=== PATIENT | male | born 1940 | race Caucasian/White ===

== ENCOUNTER 2016-07-13 19:27 | Inpatient (IN) ==
--- NOTE | 2016-07-13 20:09 | Emergency Department Note ---
Disposition Clinical Impression: Lacunar infarct, acute Disposition: Admitted As Inpatient Condition: Good Referrals: NO,PCP [Non-Partnered Physician] - Forms: ED Satisfaction Letter Time of Disposition: 21:24 Neuro HPI - General Chief Complaint: ED Neuro Symptoms/Deficit Stated Complaint: stroke like symptoms Time Seen by Provider: 07/13/16 19:37 Source: patient, EMS Limitations: no limitations Nursing Notes Reviewed: Yes Vital Signs Reviewed: Yes - History of Present Illness HPI Narrative: 76 year old male with HX of slurred speech and right sided weakness and difficulty with balance on the right side that started at 0800 this morning. Kaya states that his vision is always blurred on the right side and this has not changed but it does affect his coordination. Kaya does state that it seems as though his balance is omre off than usual in addition to the fact that his right upper extremity feels more weak to him than usual and his speech seems slurred. At the time of the incident he was working in his yard and his symptoms have improved although still present. Kaya states that he has no previous history of strokes or MIs and is not on any anticoagualtion. Kaya denies fevers, nausea, vomitting, headache, neck pain, chest pain, shortness of breaht, abdominal pain, UTI symptoms. - Related Data Home Medications: Home Medications Medication Instructions Recorded Confirmed Albuterol Sulfate [Albuterol 2 puff IH Q4H PRN 02/20/16 07/13/16 Inhaler] Budesonide/Formoterol 80/4.5 2 puff IH BID 02/20/16 07/13/16 [Symbicort 80/4.5] Losartan Potassium [Cozaar] 50 mg PO DAILY 02/20/16 07/13/16 Montelukast [Singulair] 10 mg PO HS 02/20/16 07/13/16 Omeprazole [PriLOSEC] 20 mg PO DAILY 02/20/16 07/13/16 Furosemide [Lasix] 20 mg PO DAILY 07/13/16 07/13/16 Allergies/Adverse Reactions: Allergies Allergy/AdvReac Type Severity Reaction Status Date / Time No Known Allergies Allergy Verified 02/20/16 12:30 Constitutional: Reports: weakness. Denies: fever, chills, weight change Eyes: Denies: eye pain, eye discharge, vision change ENT ED: Denies: ear pain, throat pain, dental pain, hearing loss, epistaxis, congestion, dysphagia Cardiovascular: Denies: chest pain, palpitations, dyspnea on exertion, edema, syncope Respiratory: Denies: cough, dyspnea, wheezes, hemoptysis, stridor Gastrointestinal: Denies: abdominal pain, nausea, vomiting, diarrhea, constipation, hematemesis, melena, hematochezia Genitourinary: Denies: urgency, dysuria, frequency, hematuria Musculoskeletal: Denies: back pain, neck pain, arthralgia, myalgia Integumentary: Denies: rash, abrasion, lesions Neurological: Reports: weakness, confusion, abnormal gait. Denies: headache, numbness, paresthesias, vertigo Psychiatric: Denies: anxiety, depression, suicidal thoughts, homicidal thoughts , auditory hallucinations, visual hallucinations Endocrine: Denies: fatigue Hematological/Lymphatic: Denies: easy bleeding, easy bruising Allergic/Immunologic: Denies: facial swelling, urticaria Past Medical History - Past Medical History Medical history: Reports: arthritis, COPD, GERD, hypertension Psychiatric history: Reports: no psych history - Social History Smoking Status: Former smoker Smokeless Tobacco Status: No Alcohol use: Reports: none Drug use: Reports: none Physical Exam - General Limitations: no limitations General appearance: alert, in no apparent distress - Head Head exam: atraumatic, normocephalic, normal inspection - Eye Eye exam: Present: normal appearance, PERRL, EOMI - Expanded Eye Exam Pupils: Left: reactive - ENT ENT exam: normal exam, normal oropharynx, mucous membranes moist - Expanded ENT Exam External ear exam: Present: normal external inspection Mouth exam: Present: normal external inspection Teeth exam: Present: normal inspection Throat exam: Present: normal inspection - Neck Neck exam: Present: normal inspection, full ROM, trachea midline - Chest Chest inspection: Present: normal inspection, symmetric chest wall rise - Respiratory Respiratory exam: Present: normal lung sounds bilaterally - Cardiovascular Cardiovascular exam: Present: regular rate, normal rhythm, normal heart sounds - Abdominal Exam Abdominal exam: Present: soft, Non-Tender. Absent: tenderness, distention, guarding, rebound, rigidity - Extremities Exam Extremities exam: Present: normal inspection, full ROM. Absent: tenderness, pedal edema - Expanded Upper Extremity Exam Shoulder exam: Present: normal inspection, full ROM Arm exam: Present: normal inspection, full ROM Elbow exam: Present: normal inspection, full ROM Forearm/Wrist exam: Present: normal inspection, full ROM Hand exam: Present: normal inspection, full ROM Vascular exam: Normal: capillary refill, radial pulse - Expanded Lower Extremity Exam Hip/Pelvis exam: Present: normal inspection, full ROM Upper leg exam: Present: normal inspection, full ROM Knee exam: Present: normal inspection, full ROM Lower leg exam: Present: normal inspection, full ROM Ankle exam: Present: normal inspection, full ROM Foot/toe exam: Present: normal inspection, full ROM Neurovascular/Tendon exam: Absent: motor deficit, sensory deficit, tendon deficit - Back Exam Back exam: Present: normal inspection, full ROM. Absent: tenderness - Neurological Exam Neurological exam: Present: alert, oriented X3 - Expanded Neurological Exam Patient oriented to: Present: person, place, time Speech: Present: receptive aphasia Cranial nerves: EOM function (II, III, IV, ): Normal, facial sensation (V): Normal, facial palsy (VII): Normal, gag reflex (IX): Normal, tongue deviation ( XII): Normal Cerebellar function: finger to nose: Abnormal Right, heel to [place]: Normal Cerebellar function: ataxic gait Motor strength - LUE: 4/5 Motor strength - RUE: 4/5 Motor strength - LLE: 4/5 Motor strength - RLE: 4/5 Upper motor neuron exam: yamila neglect: Absent bilaterally, pronator drift: Present of right Sensory exam upper extremity: light touch: Normal, pin prick: Normal Sensory exam lower extremity: light touch: Normal, pin prick: Normal Coma Scale Eye Opening: Spontaneous Coma Scale Motor Response: Obeys Commands Coma Scale Verbal Response: Oriented Coma Scale Total: 15 - Psychiatric Psychiatric exam: Present: normal affect, normal mood - Skin Skin exam: Present: warm, dry, intact, normal color Course Course Narrative: Kaya is outside the window for tPa we will for a workup for tia r/o CVA including a MR brain due to ataxia and favoring his left side. likely consult with neurolgoy before dispostion. - Consultations Consultation #1: radiologist called to inform us that kaya has an acute infarct. Unfortunatley the telephone encounter ended before I was able to retrieve the rest of the information from the radiologist. Time: 20:59 Consultation #2: discussed case with Dr. Del Angel (neurology) and agrees with plan of stroke admission. ASA given. will admit to medicine. Time: 21:24 Consultation #3: Dr. Mcpherson accepts patient for medicine service. Time: 21:33 Vital Signs Temperature 98.0 F 07/13/16 19:30 Pulse Rate 99 07/13/16 19:30 Respiratory Rate 18 07/13/16 19:30 Blood Pressure 173/106 07/13/16 19:30 O2 Sat by Pulse Oximetry 93 07/13/16 19:30 Temperature 98.0 F 07/13/16 19:30 Pulse Rate 100 07/13/16 21:13 Respiratory Rate 18 07/13/16 21:13 Blood Pressure 170/92 07/13/16 21:13 O2 Sat by Pulse Oximetry 93 07/13/16 19:30 Oxygen Delivery Oxygen Delivery Room Air Neuro Symptoms/Deficit - Lab Data Result diagrams: 07/13/16 20:55 07/13/16 20:55 Lab Results 07/13/16 07/13/16 07/13/16 Range/Units 19:32 20:55 20:55 WBC (4.3-11.1) K/mcL RBC (4.19-5.50) M/mcL Hgb (12.9-16.9) g/dL Hct (37.5-50.1) % MCV (83.0-100.0) fL MCH (28.0-33.3) pg MCHC (31.6-35.5) g/dL RDW (11.5-14.5) % Plt Count (140-400) K/mcL MPV (9.4-12.4) fL Immature Gran % (0-4) % Seg Neutrophils % % Lymphocytes % % Monocytes % % Eosinophils % % Basophils % % Neutrophils # (1.6-8.9) K/mcL Lymphocytes # (0.6-4.6) K/mcL Monocytes # (0.0-1.3) K/mcL Eosinophils # (0.0-0.6) K/mcL Basophils # (0.0-0.2) K/mcL Immature Plt Fraction (1.1-6.1) % PT 11.0 (9.4-12.1) Seconds INR 1.0 APTT 30.4 (26.0-36.0) Seconds Sodium (136-145) mEq/L Potassium (3.5-4.5) mEq/L Chloride (98-109) mEq/L Carbon Dioxide (19-29) mEq/L BUN (8-26) mg/dL Creatinine (0.72-1.25) mg/dL Est GFR ( Amer) (> 60) Est GFR (Non-Af Amer) (> 60) BUN/Creatinine Ratio (6-26) Glucose (70-99) mg/dL POC Glucose 96 H (58-89) Calculated Osmolality (280-300) Calcium (8.6-10.8) mg/dL Total Bilirubin 1.3 H (0.2-1.2) mg/dL Direct Bilirubin 0.5 (0.0-0.5) mg/dL Indirect Bilirubin 0.8 (0.0-1.2) mg/dL AST 27 (5-34) Units/L ALT 18 (0-55) Units/L Alkaline Phosphatase 87 (38-126) Units/L Serum Total Protein 5.5 L (6.0-8.3) g/dL Albumin 2.7 L (3.5-5.0) g/dL Globulin 2.8 (2.4-3.5) g/dL Albumin/Globulin Ratio 1.0 L (1.1-2.2) Lipase (8-78) Units/L Urine Color (Yellow) Urine Clarity (Clear) Urine pH (5.0-8.0) pH Units Ur Specific [place] (1.010-1.025) Urine Protein (Neg-Trace) mg/dL Urine Glucose (UA) (Normal) mg/dL Urine Ketones (Negative) mg/dL Urine Blood (Negative) Urine Nitrite (Negative) Urine Bilirubin (Negative) Urine Urobilinogen (Normal) mg/dL Ur Leukocyte Esterase (Negative) Urine Microscopic RBC (0-3) per hpf Urine Microscopic WBC (0-3) per hpf Ur Squamous Epith Cells (None-Few) per lpf Urine Bacteria (None-Few) per hpf Hyaline Casts (None-Few) per lpf Ur Culture Indicated? (NO) 07/13/16 07/13/16 07/13/16 Range/Units 20:55 20:55 20:55 WBC 7.2 (4.3-11.1) K/mcL RBC 3.77 L (4.19-5.50) M/mcL Hgb 13.0 (12.9-16.9) g/dL Hct 36.2 L (37.5-50.1) % MCV 96.0 (83.0-100.0) fL MCH 34.5 H (28.0-33.3) pg MCHC 35.9 H (31.6-35.5) g/dL RDW 13.0 (11.5-14.5) % Plt Count 264 (140-400) K/mcL MPV 8.6 L (9.4-12.4) fL Immature Gran % 0.3 (0-4) % Seg Neutrophils % 55.2 % Lymphocytes % 33.0 % Monocytes % 10.4 % Eosinophils % 0.1 % Basophils % 1.0 % Neutrophils # 4.0 (1.6-8.9) K/mcL Lymphocytes # 2.4 (0.6-4.6) K/mcL Monocytes # 0.8 (0.0-1.3) K/mcL Eosinophils # 0.0 (0.0-0.6) K/mcL Basophils # 0.1 (0.0-0.2) K/mcL Immature Plt Fraction 1.6 (1.1-6.1) % PT (9.4-12.1) Seconds INR APTT (26.0-36.0) Seconds Sodium 140 (136-145) mEq/L Potassium 3.7 (3.5-4.5) mEq/L Chloride 114 H (98-109) mEq/L Carbon Dioxide 21 (19-29) mEq/L BUN 15 (8-26) mg/dL Creatinine 1.16 (0.72-1.25) mg/dL Est GFR ( Amer) > 60 (> 60) Est GFR (Non-Af Amer) > 60 (> 60) BUN/Creatinine Ratio 13 (6-26) Glucose 100 H (70-99) mg/dL POC Glucose (58-89) Calculated Osmolality 291 (280-300) Calcium 8.2 L (8.6-10.8) mg/dL Total Bilirubin (0.2-1.2) mg/dL Direct Bilirubin (0.0-0.5) mg/dL Indirect Bilirubin (0.0-1.2) mg/dL AST (5-34) Units/L ALT (0-55) Units/L Alkaline Phosphatase (38-126) Units/L Serum Total Protein (6.0-8.3) g/dL Albumin (3.5-5.0) g/dL Globulin (2.4-3.5) g/dL Albumin/Globulin Ratio (1.1-2.2) Lipase 58 (8-78) Units/L Urine Color (Yellow) Urine Clarity (Clear) Urine pH (5.0-8.0) pH Units Ur Specific [place] (1.010-1.025) Urine Protein (Neg-Trace) mg/dL Urine Glucose (UA) (Normal) mg/dL Urine Ketones (Negative) mg/dL Urine Blood (Negative) Urine Nitrite (Negative) Urine Bilirubin (Negative) Urine Urobilinogen (Normal) mg/dL Ur Leukocyte Esterase (Negative) Urine Microscopic RBC (0-3) per hpf Urine Microscopic WBC (0-3) per hpf Ur Squamous Epith Cells (None-Few) per lpf Urine Bacteria (None-Few) per hpf Hyaline Casts (None-Few) per lpf Ur Culture Indicated? (NO) 07/13/16 Range/Units 21:15 WBC (4.3-11.1) K/mcL RBC (4.19-5.50) M/mcL Hgb (12.9-16.9) g/dL Hct (37.5-50.1) % MCV (83.0-100.0) fL MCH (28.0-33.3) pg MCHC (31.6-35.5) g/dL RDW (11.5-14.5) % Plt Count (140-400) K/mcL MPV (9.4-12.4) fL Immature Gran % (0-4) % Seg Neutrophils % % Lymphocytes % % Monocytes % % Eosinophils % % Basophils % % Neutrophils # (1.6-8.9) K/mcL Lymphocytes # (0.6-4.6) K/mcL Monocytes # (0.0-1.3) K/mcL Eosinophils # (0.0-0.6) K/mcL Basophils # (0.0-0.2) K/mcL Immature Plt Fraction (1.1-6.1) % PT (9.4-12.1) Seconds INR APTT (26.0-36.0) Seconds Sodium (136-145) mEq/L Potassium (3.5-4.5) mEq/L Chloride (98-109) mEq/L Carbon Dioxide (19-29) mEq/L BUN (8-26) mg/dL Creatinine (0.72-1.25) mg/dL Est GFR ( Amer) (> 60) Est GFR (Non-Af Amer) (> 60) BUN/Creatinine Ratio (6-26) Glucose (70-99) mg/dL POC Glucose (58-89) Calculated Osmolality (280-300) Calcium (8.6-10.8) mg/dL Total Bilirubin (0.2-1.2) mg/dL Direct Bilirubin (0.0-0.5) mg/dL Indirect Bilirubin (0.0-1.2) mg/dL AST (5-34) Units/L ALT (0-55) Units/L Alkaline Phosphatase (38-126) Units/L Serum Total Protein (6.0-8.3) g/dL Albumin (3.5-5.0) g/dL Globulin (2.4-3.5) g/dL Albumin/Globulin Ratio (1.1-2.2) Lipase (8-78) Units/L Urine Color Yellow (Yellow) Urine Clarity Clear (Clear) Urine pH 6.5 (5.0-8.0) pH Units Ur Specific [place] 1.023 (1.010-1.025) Urine Protein >=1000 H (Neg-Trace) mg/dL Urine Glucose (UA) Normal (Normal) mg/dL Urine Ketones Negative (Negative) mg/dL Urine Blood Moderate H (Negative) Urine Nitrite Negative (Negative) Urine Bilirubin Negative (Negative) Urine Urobilinogen Normal (Normal) mg/dL Ur Leukocyte Esterase Negative (Negative) Urine Microscopic RBC 5-15 H (0-3) per hpf Urine Microscopic WBC 5-15 H (0-3) per hpf Ur Squamous Epith Cells Many H (None-Few) per lpf Urine Bacteria None Seen (None-Few) per hpf Hyaline Casts None Seen (None-Few) per lpf Ur Culture Indicated? YES A (NO) - EKG Data EKG attestation: Yes I reviewed and interpreted this EKG. EKG results narrative: NSR with rate of 75. NO STEMI. normal intervals. no change from previous ekg () 1941 NIH Stroke Scale - Level of Consciousness LOC: Alert - LOC Questions LOC Questions: Answers both correctly - LOC Commands LOC Commands: Performs both correctly - Best Gaze Best Gaze: Normal - Visual Visual: No visual loss - Facial Palsy Facial Palsy: Normal - Motor Arms Motor Arm-Left: No drift for 10 seconds Motor Arm-Right: Drift, does NOT hit bed - Motor Legs Motor Leg-Left: No drift for 5 seconds Motor Leg-Right: No drift for 5 seconds - Limb Ataxia Limb Ataxia: Normal, No Ataxia - Sensory Sensory: Normal - Best Language Best Language: No aphasia - Dysarthria Dysarthria: Mild, slurs some words - Extinction and Inattention Extinction and Inattention: Normal - NIHSS Total Score NIHSS Total Score: 2 TPA Checklist - LKW: 3-4.5 hrs Add. Contraindications Patient/family understanding: The patient/family members have been counseled and understood the risk, benefit , and alternatives of treatment.
[2016-07-13] MEDS ORDERED: Aspirin 325 MG TABLET PO ONE (21:11)
[2016-07-13 21:14] LABS: Basophils # 0.1 K/mcL (0.0-0.2); Eosinophils % 0.1 %; Hematocrit 36.2 % (37.5-50.1); Immature Granulocytes % 0.3 % (0-4); Immature Platelets 1.6 % (1.1-6.1); Lymphocytes # 2.4 K/mcL (0.6-4.6); Mean Corpuscular HGB Conc 35.9 g/dL (31.6-35.5); Mean Corpuscular Hemoglobin 34.5 pg (28.0-33.3); Mean Platelet Volume 8.6 fL (9.4-12.4); Monocytes # 0.8 K/mcL (0.0-1.3); Monocytes % 10.4 %; Platelet Count 264 K/mcL (140-400); Red Blood Count 3.77 M/mcL (4.19-5.50); Segmented Neutrophils % 55.2 %
[2016-07-13 21:21] LABS: Activated Partial Thrombo Time 30.4 Seconds (26.0-36.0)
[2016-07-13 21:26] LABS: Bilirubin,Urine Negative (Negative); Blood,Urine Moderate (Negative); Clarity,Urine Clear (Clear); Color,Urine Yellow (Yellow); Glucose,Urine (UA) Normal (Normal); Ketones,Urine Negative (Negative); Leukocyte Esterase,Urine Negative (Negative); Nitrite,Urine Negative (Negative); PH,Urine 6.5 pH Units (5.0-8.0); Protein,Urine >=1000 mg/dL (Neg-Trace); Specific Gravity,Urine 1.023 (1.010-1.025); Urobilinogen,Urine Normal (Normal)
[2016-07-13 21:27] LABS: Bacteria,Urine None Seen per hpf (None-Few); Hyaline Casts,Urine None Seen per lpf (None-Few); Squamous Epithelial Cell,Urine Many per lpf (None-Few)
[2016-07-13 21:28] LABS: BUN/Creatinine Ratio 13 (6-26); Blood Urea Nitrogen 15 mg/dL (8-26); Calcium 8.2 mg/dL (8.6-10.8); Carbon Dioxide 21 mEq/L (19-29); Chloride 114 mEq/L (98-109); Glucose 100 mg/dL (70-99); Osmolality,Calculated 291 (280-300); Potassium 3.7 mEq/L (3.5-4.5); Sodium 140 mEq/L (136-145); eGFR For African Americans > 60 (> 60); eGFR For Non-African Americans > 60 (> 60)
[2016-07-13 21:29] LABS: Albumin 2.7 g/dL (3.5-5.0); Bilirubin,Direct 0.5 mg/dL (0.0-0.5); Bilirubin,Indirect 0.8 mg/dL (0.0-1.2); Bilirubin,Total 1.3 mg/dL (0.2-1.2); Globulin 2.8 g/dL (2.4-3.5); Total Protein 5.5 g/dL (6.0-8.3)
--- NOTE | 2016-07-13 22:02 | Emergency Department Note ---
Disposition Clinical Impression: Lacunar infarct, acute Disposition: Admitted As Inpatient Condition: Good General Adult HPI - General Chief complaint: ED Neuro Symptoms/Deficit Stated complaint: stroke like symptoms Time Seen by Provider: 07/13/16 19:37 Source: patient, EMS Limitations: no limitations - History of Present Illness Pain Scale: 0 - Related Data Home Medications Medication Instructions Recorded Confirmed Albuterol Sulfate [Albuterol 2 puff IH Q4H PRN 02/20/16 07/13/16 Inhaler] Budesonide/Formoterol 80/4.5 2 puff IH BID 02/20/16 07/13/16 [Symbicort 80/4.5] Losartan Potassium [Cozaar] 50 mg PO DAILY 02/20/16 07/13/16 Montelukast [Singulair] 10 mg PO HS 02/20/16 07/13/16 Omeprazole [PriLOSEC] 20 mg PO DAILY 02/20/16 07/13/16 Furosemide [Lasix] 20 mg PO DAILY 07/13/16 07/13/16 Allergies Allergy/AdvReac Type Severity Reaction Status Date / Time No Known Allergies Allergy Verified 02/20/16 12:30 Constitutional: Reports: weakness. Denies: fever, chills, weight change Eyes: Denies: eye pain, eye discharge, vision change ENT ED: Denies: ear pain, throat pain, dental pain, hearing loss, epistaxis, congestion, dysphagia Cardiovascular: Denies: chest pain, palpitations, dyspnea on exertion, edema, syncope Respiratory: Denies: cough, dyspnea, wheezes, hemoptysis, stridor Gastrointestinal: Denies: abdominal pain, nausea, vomiting, diarrhea, constipation, hematemesis, melena, hematochezia Genitourinary: Denies: urgency, dysuria, frequency, hematuria Musculoskeletal: Denies: back pain, neck pain, arthralgia, myalgia Integumentary: Denies: rash, abrasion, lesions Neurological: Reports: weakness, confusion, abnormal gait. Denies: headache, numbness, paresthesias, vertigo Psychiatric: Denies: anxiety, depression, suicidal thoughts, homicidal thoughts , auditory hallucinations, visual hallucinations Endocrine: Denies: fatigue Hematological/Lymphatic: Denies: easy bleeding, easy bruising Allergic/Immunologic: Denies: facial swelling, urticaria Past Medical History - Past Medical History Medical history: Reports: arthritis, COPD, GERD, hypertension Psychiatric history: Reports: no psych history - Social History Smoking Status: Former smoker Smokeless Tobacco Status: No Alcohol use: Reports: none Drug use: Reports: none Physical Exam - General Limitations: no limitations General appearance: alert, in no apparent distress Course - Reevaluation(s) Reevaluation #1: I saw the patient with the resident, Dr. Calhoun. Patient presented with an onset of slurred speech arm weakness and a little bit of ataxia that started about 8:00 this morning. He shows up 12 hours into the event. Clinically it sounds and acts like a stroke. The patient's speech is dysarthric. We went straight to MRI which showed a lacunar infarct. Patient is outside the window for TPA or even endovascular intervention. We consulted the neurologist here who recommended aspirin and admission to the hospital for workup. That arrangement has been made. Time: 22:02 Vital Signs Temperature 98.0 F 07/13/16 19:30 Pulse Rate 99 07/13/16 19:30 Respiratory Rate 18 07/13/16 19:30 Blood Pressure 173/106 07/13/16 19:30 O2 Sat by Pulse Oximetry 93 07/13/16 19:30 Temperature 98.0 F 07/13/16 19:30 Pulse Rate 100 07/13/16 21:13 Respiratory Rate 18 07/13/16 21:13 Blood Pressure 170/92 07/13/16 21:13 O2 Sat by Pulse Oximetry 93 07/13/16 19:30 Oxygen Delivery Oxygen Delivery Room Air Medical Decision Making - Lab Data Result diagrams: 07/13/16 20:55 07/13/16 20:55 Lab Results 07/13/16 07/13/16 07/13/16 Range/Units 19:32 20:55 20:55 WBC (4.3-11.1) K/mcL RBC (4.19-5.50) M/mcL Hgb (12.9-16.9) g/dL Hct (37.5-50.1) % MCV (83.0-100.0) fL MCH (28.0-33.3) pg MCHC (31.6-35.5) g/dL RDW (11.5-14.5) % Plt Count (140-400) K/mcL MPV (9.4-12.4) fL Immature Gran % (0-4) % Seg Neutrophils % % Lymphocytes % % Monocytes % % Eosinophils % % Basophils % % Neutrophils # (1.6-8.9) K/mcL Lymphocytes # (0.6-4.6) K/mcL Monocytes # (0.0-1.3) K/mcL Eosinophils # (0.0-0.6) K/mcL Basophils # (0.0-0.2) K/mcL Immature Plt Fraction (1.1-6.1) % PT 11.0 (9.4-12.1) Seconds INR 1.0 APTT 30.4 (26.0-36.0) Seconds Sodium (136-145) mEq/L Potassium (3.5-4.5) mEq/L Chloride (98-109) mEq/L Carbon Dioxide (19-29) mEq/L BUN (8-26) mg/dL Creatinine (0.72-1.25) mg/dL Est GFR ( Amer) (> 60) Est GFR (Non-Af Amer) (> 60) BUN/Creatinine Ratio (6-26) Glucose (70-99) mg/dL POC Glucose 96 H (58-89) Calculated Osmolality (280-300) Calcium (8.6-10.8) mg/dL Total Bilirubin 1.3 H (0.2-1.2) mg/dL Direct Bilirubin 0.5 (0.0-0.5) mg/dL Indirect Bilirubin 0.8 (0.0-1.2) mg/dL AST 27 (5-34) Units/L ALT 18 (0-55) Units/L Alkaline Phosphatase 87 (38-126) Units/L Troponin I (0-0.03) ng/mL Serum Total Protein 5.5 L (6.0-8.3) g/dL Albumin 2.7 L (3.5-5.0) g/dL Globulin 2.8 (2.4-3.5) g/dL Albumin/Globulin Ratio 1.0 L (1.1-2.2) Lipase (8-78) Units/L Urine Color (Yellow) Urine Clarity (Clear) Urine pH (5.0-8.0) pH Units Ur Specific [place] (1.010-1.025) Urine Protein (Neg-Trace) mg/dL Urine Glucose (UA) (Normal) mg/dL Urine Ketones (Negative) mg/dL Urine Blood (Negative) Urine Nitrite (Negative) Urine Bilirubin (Negative) Urine Urobilinogen (Normal) mg/dL Ur Leukocyte Esterase (Negative) Urine Microscopic RBC (0-3) per hpf Urine Microscopic WBC (0-3) per hpf Ur Squamous Epith Cells (None-Few) per lpf Urine Bacteria (None-Few) per hpf Hyaline Casts (None-Few) per lpf Ur Culture Indicated? (NO) 07/13/16 07/13/16 07/13/16 Range/Units 20:55 20:55 20:55 WBC 7.2 (4.3-11.1) K/mcL RBC 3.77 L (4.19-5.50) M/mcL Hgb 13.0 (12.9-16.9) g/dL Hct 36.2 L (37.5-50.1) % MCV 96.0 (83.0-100.0) fL MCH 34.5 H (28.0-33.3) pg MCHC 35.9 H (31.6-35.5) g/dL RDW 13.0 (11.5-14.5) % Plt Count 264 (140-400) K/mcL MPV 8.6 L (9.4-12.4) fL Immature Gran % 0.3 (0-4) % Seg Neutrophils % 55.2 % Lymphocytes % 33.0 % Monocytes % 10.4 % Eosinophils % 0.1 % Basophils % 1.0 % Neutrophils # 4.0 (1.6-8.9) K/mcL Lymphocytes # 2.4 (0.6-4.6) K/mcL Monocytes # 0.8 (0.0-1.3) K/mcL Eosinophils # 0.0 (0.0-0.6) K/mcL Basophils # 0.1 (0.0-0.2) K/mcL Immature Plt Fraction 1.6 (1.1-6.1) % PT (9.4-12.1) Seconds INR APTT (26.0-36.0) Seconds Sodium 140 (136-145) mEq/L Potassium 3.7 (3.5-4.5) mEq/L Chloride 114 H (98-109) mEq/L Carbon Dioxide 21 (19-29) mEq/L BUN 15 (8-26) mg/dL Creatinine 1.16 (0.72-1.25) mg/dL Est GFR ( Amer) > 60 (> 60) Est GFR (Non-Af Amer) > 60 (> 60) BUN/Creatinine Ratio 13 (6-26) Glucose 100 H (70-99) mg/dL POC Glucose (58-89) Calculated Osmolality 291 (280-300) Calcium 8.2 L (8.6-10.8) mg/dL Total Bilirubin (0.2-1.2) mg/dL Direct Bilirubin (0.0-0.5) mg/dL Indirect Bilirubin (0.0-1.2) mg/dL AST (5-34) Units/L ALT (0-55) Units/L Alkaline Phosphatase (38-126) Units/L Troponin I (0-0.03) ng/mL Serum Total Protein (6.0-8.3) g/dL Albumin (3.5-5.0) g/dL Globulin (2.4-3.5) g/dL Albumin/Globulin Ratio (1.1-2.2) Lipase 58 (8-78) Units/L Urine Color (Yellow) Urine Clarity (Clear) Urine pH (5.0-8.0) pH Units Ur Specific [place] (1.010-1.025) Urine Protein (Neg-Trace) mg/dL Urine Glucose (UA) (Normal) mg/dL Urine Ketones (Negative) mg/dL Urine Blood (Negative) Urine Nitrite (Negative) Urine Bilirubin (Negative) Urine Urobilinogen (Normal) mg/dL Ur Leukocyte Esterase (Negative) Urine Microscopic RBC (0-3) per hpf Urine Microscopic WBC (0-3) per hpf Ur Squamous Epith Cells (None-Few) per lpf Urine Bacteria (None-Few) per hpf Hyaline Casts (None-Few) per lpf Ur Culture Indicated? (NO) 07/13/16 07/13/16 Range/Units 20:55 21:15 WBC (4.3-11.1) K/mcL RBC (4.19-5.50) M/mcL Hgb (12.9-16.9) g/dL Hct (37.5-50.1) % MCV (83.0-100.0) fL MCH (28.0-33.3) pg MCHC (31.6-35.5) g/dL RDW (11.5-14.5) % Plt Count (140-400) K/mcL MPV (9.4-12.4) fL Immature Gran % (0-4) % Seg Neutrophils % % Lymphocytes % % Monocytes % % Eosinophils % % Basophils % % Neutrophils # (1.6-8.9) K/mcL Lymphocytes # (0.6-4.6) K/mcL Monocytes # (0.0-1.3) K/mcL Eosinophils # (0.0-0.6) K/mcL Basophils # (0.0-0.2) K/mcL Immature Plt Fraction (1.1-6.1) % PT (9.4-12.1) Seconds INR APTT (26.0-36.0) Seconds Sodium (136-145) mEq/L Potassium (3.5-4.5) mEq/L Chloride (98-109) mEq/L Carbon Dioxide (19-29) mEq/L BUN (8-26) mg/dL Creatinine (0.72-1.25) mg/dL Est GFR ( Amer) (> 60) Est GFR (Non-Af Amer) (> 60) BUN/Creatinine Ratio (6-26) Glucose (70-99) mg/dL POC Glucose (58-89) Calculated Osmolality (280-300) Calcium (8.6-10.8) mg/dL Total Bilirubin (0.2-1.2) mg/dL Direct Bilirubin (0.0-0.5) mg/dL Indirect Bilirubin (0.0-1.2) mg/dL AST (5-34) Units/L ALT (0-55) Units/L Alkaline Phosphatase (38-126) Units/L Troponin I 0.01 (0-0.03) ng/mL Serum Total Protein (6.0-8.3) g/dL Albumin (3.5-5.0) g/dL Globulin (2.4-3.5) g/dL Albumin/Globulin Ratio (1.1-2.2) Lipase (8-78) Units/L Urine Color Yellow (Yellow) Urine Clarity Clear (Clear) Urine pH 6.5 (5.0-8.0) pH Units Ur Specific [place] 1.023 (1.010-1.025) Urine Protein >=1000 H (Neg-Trace) mg/dL Urine Glucose (UA) Normal (Normal) mg/dL Urine Ketones Negative (Negative) mg/dL Urine Blood Moderate H (Negative) Urine Nitrite Negative (Negative) Urine Bilirubin Negative (Negative) Urine Urobilinogen Normal (Normal) mg/dL Ur Leukocyte Esterase Negative (Negative) Urine Microscopic RBC 5-15 H (0-3) per hpf Urine Microscopic WBC 5-15 H (0-3) per hpf Ur Squamous Epith Cells Many H (None-Few) per lpf Urine Bacteria None Seen (None-Few) per hpf Hyaline Casts None Seen (None-Few) per lpf Ur Culture Indicated? YES A (NO) Attestation Statement - Attestation Attestation: I, Dr. Huitron, examined this patient [id number] and my medical decision- making was reviewed with Dr. Calhoun, Resident Physician. I agree with the documented findings, disposition and treatment plan as described except to the extent set forth below. Please see my progress notes for details.
[2016-07-13] MEDS ORDERED: Acetaminophen 325 MG TABLET PO PRN (23:22)
--- NOTE | 2016-07-13 23:22 | Internal Med History&Physical ---
<Adelaida Salas - Last Filed: 07/13/16 23:29> Date of Encounter: 07/13/16 Time of Encounter: 22:30 Assessment and Plan (1) Lacunar infarct, acute Current visit: Yes Status: Acute - Brain MRI showed acute lacunar infarct within the mid left solis radiata. - Check lipid panel and Hgb A1C for risk stratification. - Will obtain echocardiogram and bilateral carotid US for further stroke work- up. - Continue telemetry monitoring. - Continue aspirin and start atorvastatin 80 mg PO daily. - Will consult neurology and appreciate recommendations. Per ED note, the case had been discussed with Dr. Del Angel. - Continue close monitoring with neuro check. (2) Microscopic hematuria Current visit: Yes Status: Acute - UA found moderate blood with 5-15 RBC. - Patient is recommended to follow up with his PCP for further outpatient including potential malignancy cause. (3) Hypertension Current visit: Yes Status: Chronic - Will hold home antihypertensive medication for now to allow permissive hypertension. No treatment unless SBP > 200. - Continue to monitor. Qualifiers: Hypertension type: essential hypertension Qualified Code(s): I10 - Essential (primary) hypertension (4) COPD (chronic obstructive pulmonary disease) Current visit: Yes Status: Chronic - Continue Symbicort and prn bronchodilators. Qualifiers: COPD type: unspecified COPD Qualified Code(s): J44.9 - Chronic obstructive pulmonary disease, unspecified (5) DVT prophylaxis Current visit: Yes Status: Acute - SQ heparin. Internal Medicine - H&P: HPI Chief complaint: Slurred speech Admitted From: Emergency Dept Plans for Post Hospital Care: Home History of present illness: Mr. Acosta is a 76 year old male with PMH of HTN, COPD/asthma, GERD and knee arthritis. Patient woke up this morning with speech problem at ~ 8 am today. The slurred speech persists so patient eventually came to ED this evening. In addition to speech problem, patient also reports having right facial droop, right upper extremity weakness and unsteadiness on ambulation. Patient reports right hand/finger numbness/tingling but those are chronic. Patient denies recent change in vision or hearing, dysphagia, chest pain/discomfort, palpitation, syncope, dyspnea. Patient reports being compliant to his medications. Patient denies any known personal or family history of stroke in the past. Patient is full code. Past Med Surg Social Fam HX - Past Medical History Medical history: arthritis, COPD, GERD, hypertension Psychiatric history: no psych history - Past Surgical History Surgical History: arthroscopy (left knee) - Social History Smoking Status: Former smoker (Quitted 1984. Smoked 1 pack per day for > 40 years) Smokeless Tobacco Status: No Alcohol use: occasionally Drug use: none - Family History Father History Unknown: Yes Living Status: Age at : 60 Cause of : heart attack Hx Family Cardiac Disorders: Yes ([place]) Mother Living Status: Age at : 70 Cause of : Heart attack Hx Family Cardiac Disorders: Yes ([place]) Internal Medicine - H&P: Meds Albuterol Sulfate [Albuterol Inhaler] 2 puff IH Q4H PRN 02/20/16 [History] Budesonide/Formoterol 80/4.5 [Symbicort 80/4.5] 2 puff IH BID 02/20/16 [History ] Losartan Potassium [Cozaar] 50 mg PO DAILY 02/20/16 [History] Montelukast [Singulair] 10 mg PO HS 02/20/16 [History] Omeprazole [PriLOSEC] 20 mg PO DAILY 02/20/16 [History] Furosemide [Lasix] 20 mg PO DAILY 07/13/16 [History] Allergies No Known Allergies Allergy (Verified 02/20/16 12:30) All Systems PM: A 10-system review of systems was performed and is negative for pertinent findings except as documented above in the HPI. - Constitutional Constitutional: no anorexia, no chills, no fever(s), no weight gain, no weight loss - EENT Eyes: no change in vision Ears: no decreased hearing Nose, mouth and throat: no dysphagia, no odynophagia - Cardiovascular Cardiovascular ROS IM: lightheadedness (When getting up too fast. ), no chest pain, no palpitations, no syncope - Respiratory Respiratory: cough (Chronic non-productive cough), no dyspnea, no hemoptysis, no excessive phlegm production - Gastrointestinal Gastrointestinal: no abdominal pain, no hematochezia, no melena, no nausea, no vomiting - Genitourinary Genitourinary ROS male: no difficulty urinating, no dysuria, no hematuria - Musculoskeletal Musculoskeletal ROS IM: arthralgias (Knee), no myalgias - Integumentary Integumentary IM: no pruritus, no rash - Neurological Neurological ROS: as per HPI - Hematologic/Lymphatic Hematologic/Lymphatic: no easy bleeding, no easy bruising - Constitutional Vitals: Temp Pulse Resp BP Pulse Ox 97.5 F L 76 19 169/109 94 07/13/16 22:34 07/13/16 22:34 07/13/16 22:34 07/13/16 22:34 07/13/16 22:34 General appearance: Present: cooperative, A&O X 3, no acute distress, answers questions appropriately Exam: Dysarthria noted. - Head Head exam: Present: atraumatic, normocephalic - Eye Eye exam: Present: PERRL, conjuntiva pink, sclera anicteric - Neck Neck exam general surgery: Present: supple, trachea midline. Absent: lymphadenopathy - Respiratory Respiratory exam: Present: CTAB. Absent: accessory muscle use, rales, rhonchi, wheezes - Cardiovascular Cardiovascular exam: Present: RRR, +S1, +S2. Absent: diastolic murmur, gallop, rubs, systolic murmur - GI/Abdominal GI/Abdominal exam: Present: normal bowel sounds, soft, no peritoneal signs. Absent: distended, tenderness - Extremities Exam Extremities exam: Present: warm, radial pulses palpable and symetrical. Absent : calf tenderness, cyanotic, pedal edema - Neurological Exam Neurological exam: Present: abnormal gait, CN II-XII intact (Except mild right facial droop), oriented X3, no focal deficits. Absent: pronater drift, facial droop, speech deficit - Skin Skin exam: Present: dry, intact, warm. Absent: rash Internal Med - H&P Results - Labs CBC & Chem 7: 07/13/16 20:55 07/13/16 20:55 <Jero Mcpherson R - Last Filed: 07/14/16 01:20> Date of Encounter: 07/13/16 Internal Medicine - H&P: HPI History of present illness: Mr. Acosta is a 76 year old male All Systems PM: A 10-system review of systems was performed and is negative for pertinent findings except as documented above in the HPI. - Constitutional Vitals: Temp Pulse Resp BP Pulse Ox 97.5 F L 76 19 169/109 94 07/14/16 00:18 07/14/16 00:18 07/14/16 00:18 07/14/16 00:18 07/13/16 22:34 Internal Med - H&P Results - Labs CBC & Chem 7: 07/13/16 20:55 07/13/16 20:55 - Attending Attestation I performed history and physical examination of the patient and discussed management with resident/Septic Tank Servicer. I reviewed the resident/ Interns note and agree with the documented findings and plan of care. 76 Y/M right handed male presents with Slurred speech and right arm weakness started at about 8 AM today. Unsteadiness while walking. He reports that when he talks slow, he can get his words out; when he tries to talk fast, his words get jammed. No trouble swallowing. Right arm feels weeker than the left. No O/E: No gross cranial nerve weakness. Slurred speech present. No obvious difference in power in the extremities. Cardiac: Regular rate and rhythm. MRI of the brain reported Acute lacunar infarct in the mid left solis radiata. EKG: SR. No acute ischemic changes. Labs reviewed. A/P: CVA: Will check carotid Doppler; echo; Lipid panel. Neurology consult; Speech therapy; PT/OT.
[2016-07-13] MEDS ORDERED: Ipratropium/Albuterol Neb 3 ML IH PRN (23:26)
[2016-07-14 05:02] LABS: Basophils # 0.1 K/mcL (0.0-0.2); Basophils % 1.1 %; Eosinophils % 0.2 %; Hematocrit 34.8 % (37.5-50.1); Immature Granulocytes % 0.3 % (0-4); Lymphocytes # 2.4 K/mcL (0.6-4.6); Lymphocytes % 39.1 %; Mean Corpuscular HGB Conc 34.5 g/dL (31.6-35.5); Mean Corpuscular Hemoglobin 33.1 pg (28.0-33.3); Mean Corpuscular Volume 95.9 fL (83.0-100.0); Mean Platelet Volume 8.7 fL (9.4-12.4); Monocytes # 0.6 K/mcL (0.0-1.3); Neutrophils # 3.1 K/mcL (1.6-8.9); Platelet Count 222 K/mcL (140-400); Red Blood Count 3.63 M/mcL (4.19-5.50); Segmented Neutrophils % 49.3 %
[2016-07-14 05:22] LABS: BUN/Creatinine Ratio 13 (6-26); Blood Urea Nitrogen 14 mg/dL (8-26); Calcium 8.1 mg/dL (8.6-10.8); Carbon Dioxide 21 mEq/L (19-29); Chloride 113 mEq/L (98-109); Glucose 92 mg/dL (70-99); Osmolality,Calculated 288 (280-300); Potassium 3.5 mEq/L (3.5-4.5); Sodium 139 mEq/L (136-145); eGFR For African Americans > 60 (> 60); eGFR For Non-African Americans > 60 (> 60)
[2016-07-14 05:24] LABS: Chol/HDL Ratio 4.8 (0-4.9)
[2016-07-14] MEDS: *HR* Heparin 5,000 UNIT/ML VIAL SQ SCH ×3 (06:09→21:40)
[2016-07-14] MEDS: Aspirin 81 MG TAB.CHEW PO SCH (08:20)
[2016-07-14] MEDS ORDERED: Furosemide 20 MG TABLET PO SCH (09:00)
--- NOTE | 2016-07-14 09:08 | Neurology - Consult Note ---
<Ariel Ann - Last Filed: 07/14/16 10:12> Date of Encounter: 07/14/16 Time of Encounter: 09:08 Assessment and Plan (1) Lacunar infarct, acute Current Visit: Yes Status: Acute Brain MRI showed acute lacunar infarct within the mid left solis radiata, carotid u/s and echo pending, patient had full dose aspirin in the ER and currently on baby aspirin and high intensity statin daily, PT/OT have been consulted, patient does have a history of smoking but not currently, allow permissive hypertension, lipid panel reviewed, recommended risk factor modifications and continuation of baby aspirin/statin daily. History of Present Illness Chief complaint: Slurred speech HPI: Mr. Acosta is a 76 year old male with history of hypertension and COPD, presented to the ER with chief complaint of slurred speech. Patient states that when he woke up yesterday morning he had a slurred speech which lasted for several hours and also patient noticed right facial droop, right upper extremity weakness and unsteady gait. Patient does have a chronic right hand tingling/numbness which has not changed from his baseline, he denies headache, neck pain, change in vision, tingling/numbness/weakness of lower extremities bilaterally or urinary/bowel incontinence. Brain MRI in the ER showed acute lacunar infarct within the mid left solis radiata, neurology service was consulted for further recommendation. Past Med Surg Social Fam HX - Past Medical History Medical history: arthritis, COPD, GERD, hypertension Psychiatric history: no psych history - Past Surgical History Surgical History: arthroscopy (left knee) - Social History Smoking Status: Former smoker (Quitted 1984. Smoked 1 pack per day for > 40 years) Smokeless Tobacco Status: No Alcohol use: occasionally Drug use: none - Family History Father History Unknown: Yes Living Status: Age at : 60 Cause of : heart attack Hx Family Cardiac Disorders: Yes ([place]) Mother Living Status: Age at : 70 Cause of : Heart attack Hx Family Cardiac Disorders: Yes ([place]) Medications and Allergies Albuterol Sulfate [Albuterol Inhaler] 2 puff IH Q4H PRN 02/20/16 [History] Budesonide/Formoterol 80/4.5 [Symbicort 80/4.5] 2 puff IH BID 02/20/16 [History ] Losartan Potassium [Cozaar] 50 mg PO DAILY 02/20/16 [History] Montelukast [Singulair] 10 mg PO HS 02/20/16 [History] Omeprazole [PriLOSEC] 20 mg PO DAILY 02/20/16 [History] Furosemide [Lasix] 20 mg PO DAILY 07/13/16 [History] Allergies No Known Allergies Allergy (Verified 02/20/16 12:30) All Systems: A 10-system review of systems was performed and is negative for pertinent findings except as documented above in the HPI. Review of Systems: Patient admits slurred speech, right facial droop, right upper extremity weakness and unsteady gait. Patient does have a chronic right hand tingling/ numbness which has not changed from his baseline, he denies headache, neck pain , change in vision, tingling/numbness/weakness of lower extremities bilaterally or urinary/bowel incontinence. Physical Examination - Vital Signs Vital Signs: Initial Vital Signs Temp Pulse Resp BP Pulse Ox 98.0 F 99 18 173/106 93 07/13/16 19:30 07/13/16 19:30 07/13/16 19:30 07/13/16 19:30 07/13/16 19:30 Results - Laboratory Findings CBC and BMP: 07/14/16 03:35 07/14/16 03:35 Abnormal lab findings: Abnormal lab results RBC 3.63 M/mcL (4.19-5.50) L 07/14/16 03:35 Hgb 12.0 g/dL (12.9-16.9) L 07/14/16 03:35 Hct 34.8 % (37.5-50.1) L 07/14/16 03:35 MPV 8.7 fL (9.4-12.4) L 07/14/16 03:35 Chloride 113 mEq/L (98-109) H 07/14/16 03:35 POC Glucose 96 (58-89) H 07/13/16 19:32 Calcium 8.1 mg/dL (8.6-10.8) L 07/14/16 03:35 Total Bilirubin 1.3 mg/dL (0.2-1.2) H 07/13/16 20:55 Serum Total Protein 5.5 g/dL (6.0-8.3) L 07/13/16 20:55 Albumin 2.7 g/dL (3.5-5.0) L 07/13/16 20:55 Albumin/Globulin Ratio 1.0 (1.1-2.2) L 07/13/16 20:55 LDL Cholesterol, Calc 124 mg/dL (0-99) H 07/14/16 03:35 HDL Cholesterol 37 mg/dL (40-59) L 07/14/16 03:35 Urine Protein >=1000 mg/dL (Neg-Trace) H 07/13/16 21:15 Urine Blood Moderate (Negative) H 07/13/16 21:15 Urine Microscopic RBC 5-15 per hpf (0-3) H 07/13/16 21:15 Urine Microscopic WBC 5-15 per hpf (0-3) H 07/13/16 21:15 Ur Squamous Epith Cells Many per lpf (None-Few) H 07/13/16 21:15 Ur Culture Indicated? YES (NO) A 07/13/16 21:15 Consult Discharge Plan - Plan Referrals: Evan Balbuena MD [Primary Care Provider] - 07/22/16 10:00 am <Mel Del Angel - Last Filed: 07/14/16 12:04> Date of Encounter: 07/14/16 History of Present Illness HPI: Mr. Acosta is a 76 year old male All Systems: A 10-system review of systems was performed and is negative for pertinent findings except as documented above in the HPI. Physical Examination - Vital Signs Vital Signs: Initial Vital Signs Temp Pulse Resp BP Pulse Ox 98.0 F 99 18 173/106 93 07/13/16 19:30 07/13/16 19:30 07/13/16 19:30 07/13/16 19:30 07/13/16 19:30 Results - Laboratory Findings CBC and BMP: 07/14/16 03:35 07/14/16 03:35 Abnormal lab findings: Abnormal lab results RBC 3.63 M/mcL (4.19-5.50) L 07/14/16 03:35 Hgb 12.0 g/dL (12.9-16.9) L 07/14/16 03:35 Hct 34.8 % (37.5-50.1) L 07/14/16 03:35 MPV 8.7 fL (9.4-12.4) L 07/14/16 03:35 Chloride 113 mEq/L (98-109) H 07/14/16 03:35 POC Glucose 96 (58-89) H 07/13/16 19:32 Calcium 8.1 mg/dL (8.6-10.8) L 07/14/16 03:35 Total Bilirubin 1.3 mg/dL (0.2-1.2) H 07/13/16 20:55 Serum Total Protein 5.5 g/dL (6.0-8.3) L 07/13/16 20:55 Albumin 2.7 g/dL (3.5-5.0) L 07/13/16 20:55 Albumin/Globulin Ratio 1.0 (1.1-2.2) L 07/13/16 20:55 LDL Cholesterol, Calc 124 mg/dL (0-99) H 07/14/16 03:35 HDL Cholesterol 37 mg/dL (40-59) L 07/14/16 03:35 Urine Protein >=1000 mg/dL (Neg-Trace) H 07/13/16 21:15 Urine Blood Moderate (Negative) H 07/13/16 21:15 Urine Microscopic RBC 5-15 per hpf (0-3) H 07/13/16 21:15 Urine Microscopic WBC 5-15 per hpf (0-3) H 07/13/16 21:15 Ur Squamous Epith Cells Many per lpf (None-Few) H 07/13/16 21:15 Ur Culture Indicated? YES (NO) A 07/13/16 21:15
[2016-07-14] MEDS: Budesonide/Formoterol 80/4.5 MDI IH SCH ×3 (09:40→20:33)
--- NOTE | 2016-07-14 09:40 | Internal Med Progress Note ---
<Crystal Greene - Last Filed: 07/14/16 13:22> Date of Encounter: 07/14/16 Time of Encounter: 11:30 - Assessment and plan (1) Lacunar infarct, acute Current Visit: Yes Status: Acute Assessment and plan: Consistent with focal weakness, evidenced on Brain MRI: acute lacunar infarct within the mid left solis radiata. Lipid panel with elevated LDLs, cont statin, ASA A1C 5 Patient counseled on aggressive risk factor modification. Appreciate neurology recs. Await carotid US, Echo Ordered for PT/OT eval, patient was away for testing. Does exhibit unsteadiness on his feet, uncoordinated gait with heel-to-toe walking. Would benefit from PT/OT following. (2) Hypertension Current Visit: Yes Status: Chronic Assessment and plan: Given acute stroke setting, allow for permissive hypertension. Appreciate neurology input, ok for SBP up to 200/100. Qualifiers: Hypertension type: essential hypertension Qualified Code(s): I10 - Essential (primary) hypertension (3) Microscopic hematuria Current Visit: Yes Status: Acute Assessment and plan: UA found moderate blood with 5-15 RBC. Patient is recommended to follow up with his PCP for further outpatient including potential malignancy cause. (4) COPD (chronic obstructive pulmonary disease) Current Visit: Yes Status: Chronic Assessment and plan: Former smoker over 30 years, reports quit in 1995. Does not appear to be acute exacerbation. Cont Symbicort and prn bronchodilator. Qualifiers: COPD type: unspecified COPD Qualified Code(s): J44.9 - Chronic obstructive pulmonary disease, unspecified - Subjective Interval history: 929: Patient away for testing Discussed with resident Dr. Salas, chart reviewed. 11:30: Pt seen/eval at bedside, family members present. Affirms events prompting hospitalization as documented. He would endorse R UE weakness. Has some slurring of speech with fast conversation. Denies fever, chills, chest pain. No palpitations or pauses, dyspnea. No bladder/bowel incontinence. - Constitutional Vitals: Temp Pulse Resp BP Pulse Ox 97.6 F 56 16 174/94 96 07/14/16 08:00 07/14/16 08:00 07/14/16 08:00 07/14/16 08:00 07/14/16 08:20 General appearance: Present: cooperative, A&O X 3, no acute distress, answers questions appropriately - Head Head exam: Present: atraumatic, normocephalic Additional comments: no facial droop appreciated - Eye Eye exam: Present: EOMI, sclera anicteric - ENT ENT exam: Present: mucous membranes moist, normal oropharynx Additional comments: no uvula deviation - Neck Neck exam general surgery: Present: supple, trachea midline - Respiratory Respiratory exam: Present: CTAB. Absent: rhonchi - Cardiovascular Cardiovascular exam: Present: +S1, +S2. Absent: irregular rhythm, JVD Additional comments: no carotid bruits appreciated - GI/Abdominal GI/Abdominal exam: Present: soft, no peritoneal signs. Absent: tenderness - Extremities Exam Extremities exam: Present: warm, radial pulses palpable and symetrical. Absent : pedal edema - Neurological Exam Neurological exam: Present: motor sensory deficit, reflexes normal, speech deficit (slurred speech). Absent: normal gait (poor coordination with heel to toe walking, unclear if positive Rhomberg elicited), strengths equal and symetr throughout (RUE handgrip 4/5, positive babinski's elicited on R plantar, no clonus) Internal Medicine: Result - Labs CBC & Chem 7: 07/14/16 03:35 07/14/16 03:35 Labs: Short CBC 07/14/16 Range/Units 03:35 WBC 6.2 (4.3-11.1) K/mcL Hgb 12.0 L (12.9-16.9) g/dL Hct 34.8 L (37.5-50.1) % Plt Count 222 (140-400) K/mcL Neutrophils # 3.1 (1.6-8.9) K/mcL BMP 07/14/16 03:35 Sodium 139 Potassium 3.5 Chloride 113 H Carbon Dioxide 21 BUN 14 Creatinine 1.08 Glucose 92 Calcium 8.1 L - ABG Interpretation ABG results: PT/INR, D-dimer PT 11.0 Seconds (9.4-12.1) 07/13/16 20:55 Consult Discharge Plan - Plan Referrals: Evan Balbuena MD [Primary Care Provider] - 07/22/16 10:00 am <Joel Almodovar - Last Filed: 07/14/16 13:50> Date of Encounter: 07/14/16 - Assessment and plan (1) CVA (cerebral vascular accident) Current Visit: Yes Status: Acute Assessment and plan: Permissive HTN, neuro eval appreciated. ASA. Qualifiers: CVA mechanism: thrombosis Precerebral and cerebral artery: middle cerebral artery Laterality of affected vessel: left Qualified Code(s): I63.312 - Cerebral infarction due to thrombosis of left middle cerebral artery (2) COPD (chronic obstructive pulmonary disease) Current Visit: Yes Status: Chronic Qualifiers: COPD type: unspecified COPD Qualified Code(s): J44.9 - Chronic obstructive pulmonary disease, unspecified (3) Hypertension Current Visit: Yes Status: Chronic Qualifiers: Hypertension type: essential hypertension Qualified Code(s): I10 - Essential (primary) hypertension (4) Microscopic hematuria Current Visit: Yes Status: Acute - Constitutional Vitals: Temp Pulse Resp BP Pulse Ox 97.6 F 65 16 186/125 97 07/14/16 12:00 07/14/16 12:00 07/14/16 12:03 07/14/16 12:00 07/14/16 12:03 Internal Medicine: Result - Labs CBC & Chem 7: 07/14/16 03:35 07/14/16 03:35 Labs: Short CBC 07/14/16 Range/Units 03:35 WBC 6.2 (4.3-11.1) K/mcL Hgb 12.0 L (12.9-16.9) g/dL Hct 34.8 L (37.5-50.1) % Plt Count 222 (140-400) K/mcL Neutrophils # 3.1 (1.6-8.9) K/mcL BMP 07/14/16 03:35 Sodium 139 Potassium 3.5 Chloride 113 H Carbon Dioxide 21 BUN 14 Creatinine 1.08 Glucose 92 Calcium 8.1 L - ABG Interpretation ABG results: PT/INR, D-dimer PT 11.0 Seconds (9.4-12.1) 07/13/16 20:55 - Attending Attestation I examined this patient and my medical decision-making was reviewed with the Resident Physician on 07/14/16. I agree with the documented findings, disposition and treatment plan as described except to the extent set forth below. Mr. Acosta is currently admitted for acute CVA. He remains moderate to high risk due to potential for worsening neurologic status. Mr. Acosta is having some dyspnea at this time. He has hx COPD and has not had respiratory meds this AM. BP elevated but is acute CVA. No other acute issues. Exam Alert. Comfortable Heart reg Lungs diminished with scant end exp wheeze No edema I/P 1. Acute CVA 2. COPD 3. HTN (permissive) Further diagnoses and plan as above.
--- NOTE | 2016-07-14 15:34 | ECHO - Doppler Report ---
Echo with Saline Contrast Name: Travis Acosta Date of Study: 07/14/2016 Date: 1940 Ht: 71.0 in Medical Record#: [id number] Age: 76 Wt: 188.0 lb Gender: Male BSA: 2.05 Order #: [id number] Location: [facility] Room #: 2NE19 Reading Physician: Peter Aguilar DO, [employer] Equipment Erector: Marilee Madrigal Ordering Physician: Adelaida Salas DO Primary Physician: Evan Balbuena MD Indications: Cerebrovascular Accident Impressions: LVEF 60-65%. Normal LV chamber size and function. Mild concentric left ventricular hypertrophy. Mild left ventricular diastolic dysfunction. Normal right ventricular structure and function. No evidence of PFO with agitated saline contrast. No evidence of pulmonary hypertension. No significant valvular dysfunction. Left Ventricular Wall Motion: Rest Echo Findings All wall segments showed normal motion. Findings: Study Quality * Technically adequate exam. ECG Findings * Normal sinus rhythm. Left Ventricle * LVEF 60-65%. * Normal LV chamber size and function. * Mild concentric left ventricular hypertrophy. * Mild left ventricular diastolic dysfunction. Right Ventricle * Normal right ventricular structure and function. Left Atrium * Mildly dilated left atrium. Right Atrium * Mildly dilated right atrium. Interatrial Septum * No evidence of PFO with agitated saline contrast. Aortic Valve * Trileaflet aortic valve with normal function. * No aortic regurgitation. * No aortic stenosis. Mitral Valve * Normal mitral valve structure and function. * No mitral regurgitation. * No mitral stenosis. Tricuspid Valve * Normal tricuspid valve structure and function. * Trace tricuspid regurgitation. * No evidence of pulmonary hypertension. Pulmonic Valve * Normal pulmonic valve structure and function. * No pulmonic regurgitation. Aorta * Normally sized aortic root. Pericardium * The pericardium appears normal. IVC * Normal IVC dimensions and inspiratory collapse. Pulmonary Artery * Normal visualized portions of the main pulmonary artery. History Hypertension Hypercholesteremia Years 43 Packs 1 Family History of CAD Contrast: Agitated saline 30 ml. Measurements: BP: 174/ 94 2D Normal Values RVIDd: 3.50 cm <2.7 cm IVSd: 1.30 cm 0.6 - 1.0 cm LVIDd: 4.50 cm 3.7 - 5.6 cm LVPWd: 1.30 cm 0.6 - 1.1 cm LVIDs: 3.10 cm 1.5 - 3.6 cm AO: 3.20 cm < 4.0 cm LA: 4.30 cm 2.0 - 4.0cm %FS: 31.10 cm >25 % LA volume: 47 Mitral Valve Peak E:.71 m/sec Peak A:.97 m/sec E/A Ratio:0.7 Peak E' Lat Fred:8.19 cm/s Peak E' Med Fred:7.31 cm/s E/E' Lat Ratio:8.6 E/E' Med Ratio:9.7 Tricuspid Valve TV Regurg Peak Grad: 7.00mmHg TV Regurg Peak Fred: 1.28m/sec Updated by Peter Aguilar DO, FACJustin, ISIS, NIHARIKA on 07/14/2016 3:24:54 PM electronically signed on 07/14/2016 3:28:40 PM with status of Final [employer] C[employer]uentes: 1=Normal, 2=Hypokinesis, 3=Akinesis, 4=Dyskinesis, 5=Aneurysmal, 6=Hyperkinetic, X=Not Visualized (Blank)=Missing
[2016-07-15] MEDS: *HR* Heparin 5,000 UNIT/ML VIAL SQ SCH ×3 (05:05→21:13)
[2016-07-15 05:39] LABS: Basophils # 0.1 K/mcL (0.0-0.2); Basophils % 0.9 %; Eosinophils % 0.2 %; Immature Granulocytes % 0.2 % (0-4); Lymphocytes # 1.9 K/mcL (0.6-4.6); Lymphocytes % 29.7 %; Mean Corpuscular HGB Conc 35.3 g/dL (31.6-35.5); Mean Corpuscular Volume 96.3 fL (83.0-100.0); Mean Platelet Volume 9.1 fL (9.4-12.4); Monocytes # 0.6 K/mcL (0.0-1.3); Monocytes % 9.3 %; Neutrophils # 3.9 K/mcL (1.6-8.9); Platelet Count 209 K/mcL (140-400); Red Blood Count 3.53 M/mcL (4.19-5.50); Segmented Neutrophils % 59.7 %
[2016-07-15 05:56] LABS: BUN/Creatinine Ratio 11 (6-26); Blood Urea Nitrogen 14 mg/dL (8-26); Calcium 8.3 mg/dL (8.6-10.8); Carbon Dioxide 22 mEq/L (19-29); Chloride 113 mEq/L (98-109); Glucose 101 mg/dL (70-99); Magnesium 1.7 mg/dL (1.6-2.6); Osmolality,Calculated 293 (280-300); Potassium 3.6 mEq/L (3.5-4.5); Sodium 141 mEq/L (136-145); eGFR For African Americans > 60 (> 60); eGFR For Non-African Americans 56 (> 60)
[2016-07-15] MEDS: Budesonide/Formoterol 80/4.5 MDI IH SCH ×2 (08:28→19:51)
[2016-07-15] MEDS: Aspirin 81 MG TAB.CHEW PO SCH (10:12)
--- NOTE | 2016-07-15 11:28 | Electrocardiograph Report ---
[place] [id number] Test Date: 2016-07-13 Pat Name: Travis Acosta Department: 105 Room: 2NE19 Gender: M [employer] Software Engineer: : 1940 Requested By: Hyacinth Calhoun Order Number: [id number] Reading MD: Que Cannon MD Measurements Intervals Swengel Rate: 75 P: 78 VT: 176 QRS: 35 QRSD: 91 T: 44 QT: 373 QTc: 401 Interpretive Statements SINUS RHYTHM WITH OCCASIONAL SUPRAVENTRICULAR PREMATURE COMPLEXES Electronically Signed On 07-15-2016 11:27:13 EDT by Que Cannon MD
--- NOTE | 2016-07-15 12:19 | Neurology Progress Note ---
Date of Encounter: 07/15/16 Time of Encounter: 12:16 Assessment and Plan (1) Lacunar infarct, acute Current Visit: Yes Status: Acute Slightly improving in terms of weakness and dysarthria. Pending carotid artery duplex. Continue current plan of treatment. PT/OT. Continue medical and supportive care Subjective Principal diagnosis: Stroke Interval history: Patient seen and examined. He is doing a little, at least subjectively. still has dysarthria and hemiparesis. Is in sitting position and eating. no significant distress or other discomforts. Echocardiography showed normal LVEF 60%, no valvular dysfunction, no regional wall motion abnormality, no PFO. Carotid artery duplex pending. Objective - Constitutional Vitals: Temp Pulse Resp BP Pulse Ox 97.6 F 65 18 154/89 95 07/15/16 11:25 07/15/16 11:25 07/15/16 11:25 07/15/16 11:25 07/15/16 11:25 Results - Laboratory Findings CBC and BMP: 07/15/16 04:46 07/15/16 04:46 Abnormal lab findings: Abnormal lab results RBC 3.53 M/mcL (4.19-5.50) L 07/15/16 04:46 Hgb 12.0 g/dL (12.9-16.9) L 07/15/16 04:46 Hct 34.0 % (37.5-50.1) L 07/15/16 04:46 MCH 34.0 pg (28.0-33.3) H 07/15/16 04:46 MPV 9.1 fL (9.4-12.4) L 07/15/16 04:46 Chloride 113 mEq/L (98-109) H 07/15/16 04:46 Creatinine 1.26 mg/dL (0.72-1.25) H 07/15/16 04:46 Est GFR (Non-Af Amer) 56 (> 60) L 07/15/16 04:46 Glucose 101 mg/dL (70-99) H 07/15/16 04:46 POC Glucose 96 (58-89) H 07/13/16 19:32 Calcium 8.3 mg/dL (8.6-10.8) L 07/15/16 04:46 Total Bilirubin 1.3 mg/dL (0.2-1.2) H 07/13/16 20:55 Serum Total Protein 5.5 g/dL (6.0-8.3) L 07/13/16 20:55 Albumin 2.7 g/dL (3.5-5.0) L 07/13/16 20:55 Albumin/Globulin Ratio 1.0 (1.1-2.2) L 07/13/16 20:55 LDL Cholesterol, Calc 124 mg/dL (0-99) H 07/14/16 03:35 HDL Cholesterol 37 mg/dL (40-59) L 07/14/16 03:35 Urine Protein >=1000 mg/dL (Neg-Trace) H 07/13/16 21:15 Urine Blood Moderate (Negative) H 07/13/16 21:15 Urine Microscopic RBC 5-15 per hpf (0-3) H 07/13/16 21:15 Urine Microscopic WBC 5-15 per hpf (0-3) H 07/13/16 21:15 Ur Squamous Epith Cells Many per lpf (None-Few) H 07/13/16 21:15 Ur Culture Indicated? YES (NO) A 07/13/16 21:15 Consult Discharge Plan - Plan Referrals: Evan Balbuena MD [Primary Care Provider] - 07/22/16 10:00 am
--- NOTE | 2016-07-15 15:20 | Internal Med Progress Note ---
<Vanessa Carty - Last Filed: 07/15/16 15:16> Date of Encounter: 07/15/16 Time of Encounter: 10:30 - Assessment and plan (1) Lacunar infarct, acute Current Visit: Yes Status: Acute Assessment and plan: Consistent with focal weakness, evidenced on Brain MRI: acute lacunar infarct within the mid left solis radiata. Lipid panel with elevated LDLs, cont statin, ASA A1C 5 Echo showed LVEF 60-65%, normal LV chamber size and function, mild concentric LVH, mild LV diastolic dysfunction, normal RV structure and function, no evidence of PFO, no pulm HTN, no valvular dysfunction. Patient counseled on aggressive risk factor modification. Appreciate neurology recs. Plan: Await carotid US final report prelim report shows carotid arteries within normal limits bilaterally. continue ASA, statin. patient evaluated by PT/OT: recommended inpatient rehab at [facility]. patient accepted at [place]. will likely D/C tomorrow. (2) Hypertension Current Visit: Yes Status: Chronic Assessment and plan: Given acute stroke setting, allow for permissive hypertension. Appreciate neurology input, ok for SBP up to 200/100. Qualifiers: Hypertension type: essential hypertension Qualified Code(s): I10 - Essential (primary) hypertension (3) Microscopic hematuria Current Visit: Yes Status: Acute Assessment and plan: UA found moderate blood with 5-15 RBC. Patient is recommended to follow up with his PCP for further outpatient workup , including potential malignancy cause. (4) COPD (chronic obstructive pulmonary disease) Current Visit: Yes Status: Chronic Assessment and plan: Former smoker over 30 years, reports quit in 1995. Does not appear to be acute exacerbation. Cont Symbicort and prn bronchodilator. Qualifiers: COPD type: unspecified COPD Qualified Code(s): J44.9 - Chronic obstructive pulmonary disease, unspecified (5) DVT prophylaxis Current Visit: Yes Status: Acute Assessment and plan: Heparin SQ - Subjective Interval history: 76 year old male evaluated at bedside. patient denies nausea, vomiting, diarrhea , fever, chills. patient has no new complaints today. - Constitutional Vitals: Temp Pulse Resp BP Pulse Ox 97.6 F 65 18 154/89 95 07/15/16 11:25 07/15/16 11:25 07/15/16 11:25 07/15/16 11:25 07/15/16 11:25 General appearance: Present: cooperative, A&O X 3, no acute distress, answers questions appropriately - Head Head exam: Present: atraumatic, normocephalic - Neck Neck exam general surgery: Present: supple, trachea midline - Respiratory Additional comments: right upper lobe and right lower lobe wheezing. - Cardiovascular Cardiovascular exam: Present: RRR - GI/Abdominal GI/Abdominal exam: Present: normal bowel sounds, soft. Absent: tenderness - Extremities Exam Extremities exam: Absent: cyanotic, pedal edema - Neurological Exam Neurological exam: Present: alert, CN II-XII intact, oriented X3 Additional comments: right sided muscle strength testing 4/5, left side: 5/5, patient continues to have speech deficit, gait normal. - Psychiatric Psychiatric exam: Present: normal affect, normal mood Internal Medicine: Result - Labs CBC & Chem 7: 07/15/16 04:46 07/15/16 04:46 Labs: Short CBC 07/15/16 Range/Units 04:46 WBC 6.4 (4.3-11.1) K/mcL Hgb 12.0 L (12.9-16.9) g/dL Hct 34.0 L (37.5-50.1) % Plt Count 209 (140-400) K/mcL Neutrophils # 3.9 (1.6-8.9) K/mcL BMP 07/15/16 04:46 Sodium 141 Potassium 3.6 Chloride 113 H Carbon Dioxide 22 BUN 14 Creatinine 1.26 H Glucose 101 H Calcium 8.3 L - ABG Interpretation ABG results: PT/INR, D-dimer PT 11.0 Seconds (9.4-12.1) 07/13/16 20:55 Consult Discharge Plan - Plan Referrals: Evan Balbuena MD [Primary Care Provider] - 07/22/16 10:00 am <Joel Almodovar - Last Filed: 07/15/16 16:56> Date of Encounter: 07/15/16 - Assessment and plan (1) CVA (cerebral vascular accident) Current Visit: Yes Status: Acute Qualifiers: CVA mechanism: thrombosis Precerebral and cerebral artery: middle cerebral artery Laterality of affected vessel: left Qualified Code(s): I63.312 - Cerebral infarction due to thrombosis of left middle cerebral artery (2) COPD (chronic obstructive pulmonary disease) Current Visit: Yes Status: Chronic Qualifiers: COPD type: unspecified COPD Qualified Code(s): J44.9 - Chronic obstructive pulmonary disease, unspecified (3) Hypertension Current Visit: Yes Status: Chronic Qualifiers: Hypertension type: essential hypertension Qualified Code(s): I10 - Essential (primary) hypertension (4) Microscopic hematuria Current Visit: Yes Status: Acute - Constitutional Vitals: Temp Pulse Resp BP Pulse Ox 97.8 F 78 16 171/98 96 07/15/16 15:48 07/15/16 15:48 07/15/16 15:48 07/15/16 15:48 07/15/16 15:48 Internal Medicine: Result - Labs CBC & Chem 7: 07/15/16 04:46 07/15/16 04:46 Labs: Short CBC 07/15/16 Range/Units 04:46 WBC 6.4 (4.3-11.1) K/mcL Hgb 12.0 L (12.9-16.9) g/dL Hct 34.0 L (37.5-50.1) % Plt Count 209 (140-400) K/mcL Neutrophils # 3.9 (1.6-8.9) K/mcL BMP 07/15/16 04:46 Sodium 141 Potassium 3.6 Chloride 113 H Carbon Dioxide 22 BUN 14 Creatinine 1.26 H Glucose 101 H Calcium 8.3 L - ABG Interpretation ABG results: PT/INR, D-dimer PT 11.0 Seconds (9.4-12.1) 07/13/16 20:55 - Attending Attestation I examined this patient and my medical decision-making was reviewed with the Resident Physician on 07/15/16. I agree with the documented findings, disposition and treatment plan as described except to the extent set forth below. Mr. Acosta is currently admitted for acute CVA. He is moderate to high risk due to potential for worsening respiratory and neurologic status. Mr. Acosta has been up with therapy. He feels OK and he says his breathing is doing better today. No CP. No fever or chills. No GI symptoms. Exam Alert. Comfortable. Heart reg No wheeze today. Weakness about the same I/P 1. Acute CVA 2. HTN 3. COPD Further diagnoses and plan as above.
[2016-07-16] MEDS: *HR* Heparin 5,000 UNIT/ML VIAL SQ SCH (05:20)
--- NOTE | 2016-07-16 07:00 | Discharge Summary ---
<Vanessa Carty - Last Filed: 07/16/16 14:36> Date of Encounter: 07/16/16 Time of Encounter: 06:45 - Discharge Diagnosis (1) Lacunar infarct, acute Priority: Primary Status: Acute (2) Hypertension Priority: Secondary Status: Chronic Qualifiers: Hypertension type: essential hypertension Qualified Code(s): I10 - Essential (primary) hypertension (3) Microscopic hematuria Priority: Secondary Status: Acute (4) COPD (chronic obstructive pulmonary disease) Priority: Secondary Status: Chronic Qualifiers: COPD type: unspecified COPD Qualified Code(s): J44.9 - Chronic obstructive pulmonary disease, unspecified (5) DVT prophylaxis Priority: Secondary Status: Acute - Discharge Medications Prescriptions: Aspirin 81 mg PO DAILY #30 tab.chew Atorvastatin [Lipitor] 80 mg PO HS #30 tablet Home Medications: Albuterol Sulfate [Albuterol Inhaler] 2 puff IH Q4H PRN 02/20/16 [History] Budesonide/Formoterol 80/4.5 [Symbicort 80/4.5] 2 puff IH BID 02/20/16 [History ] Losartan Potassium [Cozaar] 50 mg PO DAILY 02/20/16 [History] Montelukast [Singulair] 10 mg PO HS 02/20/16 [History] Omeprazole [PriLOSEC] 20 mg PO DAILY 02/20/16 [History] Furosemide [Lasix] 20 mg PO DAILY 07/13/16 [History] Acetaminophen [Tylenol] 650 mg PO Q6HR PRN #0 tablet 07/16/16 [Rx] Aspirin 81 mg PO DAILY #30 tab.chew 07/16/16 [Rx] Atorvastatin [Lipitor] 80 mg PO HS #30 tablet 07/16/16 [Rx] Allergies/Adverse Reactions: Allergies No Known Allergies Allergy (Verified 02/20/16 12:30) Date of admission: 07/14/16 01:59 Primary care physician: Evan Balbuena MD Consults: 07/14/16 16:01 Consult to Medical Research Assistant [CONS] Routine Reason for SW Consult: Acute lacunar stroke with strength and coordination deficits. PT/OT recommending inpatient rehab. Appreciate your recs regarding placement. Discharging clinician: Vanessa Carty Anticipated date of discharge: 07/16/16 - Patient Status Disposition: Transfer Inpatient Rehab Fac Condition: Fair Functional capacity at discharge: independent ambulation Overall status at discharge: patient is not back to baseline - Discharge Instructions Instructions: Chronic Obstructive Pulmonary Disease (DC), Chronic Hypertension (DC) Follow Up With: Evan Balbuena MD [Primary Care Provider] - 07/22/16 10:00 am Mel Del Angel MD [Partnered Physician] - Additional Instructions: increase activities as per PT and speech therapy follow up with PCP in one week Follow up with neurology take all meds as directed return to emergency department if symptoms persist - Diet and Activity Activity: as per physical therapy Diet: low fat, low cholesterol, low salt diet Hospital course: Mr. Acosta is a 76 year old male with PMHx of HTN, COPD/asthma, GERD, knee arthritis. Patient was admitted to the hospital on 07/13/16 with CC of slurred speech, right facial droop, RUE weakness, unsteadiness on ambulation. Patient had stroke workup while in the hospital. carotid duplex study was within normal limits bilaterally. cholesterol was within normal limits, except LDL, which was mildly elevated. Brain MRI showed acute lacunar infarct within the mid left solis radiata. Echo showed LVEF 60-65%, normal LV chamber, size, and function. mild concentric LVH, mild LV diastolic dysfunciton. normal RV structure and function. No evidence of PFO, no evidence of pulmonary HTN, no significant valvular dysfunction. consult to neurology was placed, and they recommended PT/ OT, permissive hypertension, ASA, statin. patient was evaluated by PT/OT, and speech therapy while in hospital. He was recommended for inpatient rehab. He continued to suffer speech deficits and right sided upper and lower extremity weakness after his stroke. Patient remained stable throughout the course of his hospital stay. He will be discharged to an inpatient rehab for PT/OT, speech therapy. Plan: Follow up with PCP within one week of discharge Follow up with neurology take all medications as directed. return to emergency department if symptoms return. - Time Spent with Patient Total time spent providing and/or coordinating discharge services: - Constitutional Vitals: Temp Pulse Resp BP Pulse Ox 98.6 F 62 15 162/100 90 07/16/16 05:41 07/16/16 05:41 07/16/16 05:41 07/16/16 05:41 07/15/16 20:00 General appearance: Present: cooperative, A&O X 3, no acute distress, answers questions appropriately - Head Head exam: Present: atraumatic, normocephalic - Neck Neck exam general surgery: Present: supple, trachea midline - Respiratory Respiratory exam: Present: CTAB - Cardiovascular Cardiovascular exam: Present: RRR, +S1, +S2 - GI/Abdominal GI/Abdominal exam: Present: normal bowel sounds, soft. Absent: distended, tenderness - Extremities Exam Extremities exam: Absent: cyanotic, pedal edema - Neurological Exam Neurological exam: Present: alert, CN II-XII intact, oriented X3 Additional comments: muscle strength decreased on right side compared to left. patient has speech deficit as well. - Psychiatric Psychiatric exam: Present: normal affect, normal mood <Joel Almodovar - Last Filed: 07/16/16 17:59> Date of Encounter: 07/16/16 - Discharge Diagnosis (1) CVA (cerebral vascular accident) Priority: Primary Status: Acute Qualifiers: CVA mechanism: thrombosis Precerebral and cerebral artery: middle cerebral artery Laterality of affected vessel: left Qualified Code(s): I63.312 - Cerebral infarction due to thrombosis of left middle cerebral artery (2) COPD (chronic obstructive pulmonary disease) Priority: Secondary Status: Chronic Qualifiers: COPD type: emphysema Emphysema type: panlobular Qualified Code(s): J43.1 - Panlobular emphysema (3) Hypertension Priority: Secondary Status: Chronic Qualifiers: Hypertension type: essential hypertension Qualified Code(s): I10 - Essential (primary) hypertension (4) Microscopic hematuria Priority: Secondary Status: Acute Date of admission: 07/14/16 01:59 Primary care physician: Evan Balbuena MD Consults: 07/14/16 16:01 Consult to Medical Research Assistant [CONS] Routine Reason for SW Consult: Acute lacunar stroke with strength and coordination deficits. PT/OT recommending inpatient rehab. Appreciate your recs regarding placement. Hospital course: Mr. Acosta is a 76 year old male - Time Spent with Patient Total time spent providing and/or coordinating discharge services: 39min - Constitutional Vitals: Temp Pulse Resp BP Pulse Ox 97.7 F 65 16 168/115 96 07/16/16 07:09 07/16/16 07:09 07/16/16 07:57 07/16/16 07:09 07/16/16 09:27 - Attending Attestation I examined this patient and my medical decision-making was reviewed with the Resident Physician on 07/16/16. I agree with the documented findings, disposition and treatment plan as described except to the extent set forth below. Mr. Acosta is feeling OK today. He is up and about and ready for d/c to swing bed. He denies issues. His BP has been elevated but we have been not dropping it quickly. He is afebrile. Exam Alert. Comfortable Heart reg No wheeze Plan D/C to swing bed.
[2016-07-16 07:13] VITALS: BP 168/115
[2016-07-16] MEDS: Budesonide/Formoterol 80/4.5 MDI IH SCH (07:56)
[2016-07-16 09:22] LABS: BUN/Creatinine Ratio 11 (6-26); Blood Urea Nitrogen 14 mg/dL (8-26); Calcium 8.7 mg/dL (8.6-10.8); Carbon Dioxide 18 mEq/L (19-29); Chloride 112 mEq/L (98-109); Glucose 128 mg/dL (70-99); Osmolality,Calculated 290 (280-300); Potassium 3.8 mEq/L (3.5-4.5); Sodium 139 mEq/L (136-145); eGFR For African Americans > 60 (> 60); eGFR For Non-African Americans 58 (> 60)
[2016-07-16] MEDS: Aspirin 81 MG TAB.CHEW PO SCH (09:57)
--- NOTE | 2016-07-16 13:22 | Physician Discharge Referral ---
ExtendedCare Referral Info Transfer To: [facility] Provider in Charge: Joel Almodovar DO Provider in Charge after Transfer: PCP Institutional Level of Care: Skilled - Diagnosis (1) CVA (cerebral vascular accident) Priority: Primary Status: Acute (2) COPD (chronic obstructive pulmonary disease) Priority: Secondary Status: Chronic (3) Hypertension Priority: Secondary Status: Chronic (4) Microscopic hematuria Priority: Secondary Status: Acute Expected Duration of Placement: Less than 30 days Prognosis: Fair Aware of Diagnosis: Patient Aware of Prognosis: Patient - Transfer Medications Prescriptions: Aspirin 81 mg PO DAILY #30 tab.chew Atorvastatin [Lipitor] 80 mg PO HS #30 tablet Home Medications: Albuterol Sulfate [Albuterol Inhaler] 2 puff IH Q4H PRN 02/20/16 [History] Budesonide/Formoterol 80/4.5 [Symbicort 80/4.5] 2 puff IH BID 02/20/16 [History ] Losartan Potassium [Cozaar] 50 mg PO DAILY 02/20/16 [History] Montelukast [Singulair] 10 mg PO HS 02/20/16 [History] Omeprazole [PriLOSEC] 20 mg PO DAILY 02/20/16 [History] Furosemide [Lasix] 20 mg PO DAILY 07/13/16 [History] Acetaminophen [Tylenol] 650 mg PO Q6HR PRN #0 tablet 07/16/16 [Rx] Aspirin 81 mg PO DAILY #30 tab.chew 07/16/16 [Rx] Atorvastatin [Lipitor] 80 mg PO HS #30 tablet 07/16/16 [Rx] Allergies/Adverse Reactions: Allergies No Known Allergies Allergy (Verified 02/20/16 12:30) - Respiratory Orders Oxygen / L per min (Keep sat greater than 90%) Smoking Cessation: Smoking cessation has been advised. For more information, call the [place] Tobacco Quit Line at 5-586-LVCU-NOW. - Lab Orders Lab Orders: 2 Step Mantoux Test per State regulation - Ancillary Orders May use pressure relief devices daily prn, May have alcoholic beverages, May consult with Dentist, Processing Technician, Insulation Board Calender Operator PRN - Advance Directives Code Status: Full Code - History and Physical History/Physical reviewed & approved w/add comments: Essentially unchanged - Mobility Orders Ambulate - Rehabiliation Orders Rehab Potential: Good Rehab Orders: Evaluation for Physical Therapy, Evaluation for Occupational Therapy, Evaluation for Speech Therapy - Treatments Skin tear care topically daily PRN per policy, May check for fecal impaction rectally daily PRN, Fleet enema rectally every other day PRN cleansing purposes - Diet Orders Cardiac CERTIFICATION: I certify that the transfer of the above named patient to an Extended Care Facility is necessary for the continuing treatment of the diagnosis listed. The above information is true and accurate reflection of patient's current condition. Confidential - Redisclosure prohibited without a patient's written consent.
--- NOTE | 2016-07-16 19:57 | Carotid Imaging Report ---
Carotid Duplex Patient Name:Travis Acosta Order Number:[id number] Procedure Date:07/14/2016 Date:1940ge:76 yrs Gender:Male Lt BP:174 / 90 mmHg Rt.BP:174 / 94 mmHgHeart Rate: Location:[facility] Room #: [employer] Operator:Marilee Madrigal Referring MD:Adelaida Salas DO extracting machine operator:Evan Balbuena MD Reading MD:Joselo Henry MD Primary Indications:CVA Risk Factors Yes/No Hypertension Smoker Previous Impressions: Findings: Bilateral carotid system has nonstenotic plaque. Recommendations: After imaging the patient returned to their room. Findings Carotid Duplex: Right: There is nonstenotic plaque in the right distal common carotid artery. There is smooth heterogeneous plaque. There is nonstenotic plaque in the right bifurcation. There is smooth heterogeneous plaque. Prior Study: No prior study available for comparison. Carotid Results Right PSV EDV Assessment Proximal CCA 64 14 Normal Mid CCA 62 20 Normal Distal CCA 49 14 Non Stenotic Plaque Bifurcation 52 14 Non Stenotic Plaque Proximal ICA 39 13 Normal Mid ICA 41 17 Normal Distal ICA 75 20 Normal ECA 62 15 Normal Vertebral Artery 49 14 Antegrade Flow Left PSV EDV Assessment Proximal CCA 63 18 Normal Mid CCA 60 14 Normal Distal CCA 55 18 Normal Bifurcation 62 18 Normal Proximal ICA 50 15 Normal Mid ICA 53 20 Normal Distal ICA 59 22 Normal ECA 74 19 Normal Vertebral Artery 33 15 Antegrade Flow Ratio's Right ICA/CCA Ratio: 1.21 ICA/CCA Values: 75/62 Left ICA/CCA Ratio: 0.98 ICA/CCA Values: 59/60 Updated by Joselo Henry MD on 07/16/2016 7:51:14 PM electronically signed on 07/16/2016 7:51:25 PM with status of Final
== END 2016-07-16 15:40 | DRG 65 ==
LOC: 2NENU 19:27 → EMEROO 19:27 → 2NENU 22:20
PROVIDERS: ADMIT Internal Medicine; ATTEND Internal Medicine

== ENCOUNTER 2020-06-18 18:27 | Inpatient (IN) ==
[2020-06-18] MEDS ORDERED: 0.9 % Sodium Chloride 500 ML IVC ONE ×2 (19:13→20:57)
[2020-06-18 20:01] LABS: Basophils % 0.2 %; Hematocrit 36.5 % (37.5-50.1); Hemoglobin 11.8 g/dL (12.9-16.9); Immature Granulocytes % 0.4 % (0-4); Lymphocytes # 0.5 K/mcL (0.6-4.6); Lymphocytes % 9.6 %; Mean Corpuscular HGB Conc 32.3 g/dL (31.6-35.5); Mean Corpuscular Hemoglobin 31.9 pg (28.0-33.3); Mean Corpuscular Volume 98.6 fL (83.0-100.0); Mean Platelet Volume 8.6 fL (9.4-12.4); Monocytes # 0.7 K/mcL (0.0-1.3); Monocytes % 13.6 %; Platelet Count 174 K/mcL (140-400); Red Cell Distribution Width 14.5 % (11.5-14.5); Segmented Neutrophils % 76.2 %; White Blood Count 5.2 K/mcL (4.3-11.1)
[2020-06-18 20:33] LABS: Alanine Aminotransferase 28 Units/L (7-52); Albumin 3.5 g/dL (3.5-5.7); Albumin/Globulin Ratio 1.3 (1.1-2.2); Alkaline Phosphatase 64 Units/L (34-104); Aspartate Amino Transferase 57 Units/L (13-39); BUN/Creatinine Ratio 16 (6-26); Bilirubin,Direct 0.3 mg/dL (0.0-0.2); Bilirubin,Total 1.3 mg/dL (0.3-1.0); Blood Urea Nitrogen 24 mg/dL (8-23); Calcium 8.3 mg/dL (8.6-10.3); Carbon Dioxide 20 mEq/L (23-29); Chloride 106 mEq/L (98-107); Creatine Kinase 194 Units/L (30-223); Ethanol < 10 mg/dL (Less than 10); Globulin 2.7 g/dL (2.4-3.5); Glucose 111 mg/dL (70-105); Lipase 89 Units/L (11-82); Osmolality,Calculated 285 (280-300); Potassium 3.8 mEq/L (3.5-5.1); Sodium 135 mEq/L (136-145); Total Protein 6.2 g/dL (6.4-8.9); Troponin I 0.04 ng/mL (< 0.04); eGFR For African Americans 54 (> 60); eGFR For Non-African Americans 45 (> 60)
[2020-06-18 20:52] LABS: Bacteria,Urine Few per hpf (None-Few); Bilirubin,Urine Negative (Negative); Blood,Urine Large (Negative); Clarity,Urine Clear (Clear); Color,Urine Yellow (Yellow); Glucose,Urine (UA) Normal (Normal); Ketones,Urine Negative (Negative); Leukocyte Esterase,Urine Negative (Negative); Mucus,Urine Few per lpf (None-Few); Nitrite,Urine Negative (Negative); Protein,Urine >=600 mg/dL (Neg-Trace); Specific Gravity,Urine 1.028 (1.010-1.025); Squamous Epithelial Cell,Urine Few per hpf (None-Few); Urobilinogen,Urine Normal (Normal); WBC,Urine 0-3 per hpf (0-3)
[2020-06-18 21:02] LABS: Amphetamine Screen,Urine Negative ng/mL (Cutoff=1000); Barbiturate Screen,Urine Negative ng/mL (Cutoff=200); Benzodiazepines Screen,Urine Negative ng/mL (Cutoff=200); Cannabinoid Screen,Urine Negative ng/mL (Cutoff = 50); Cocaine Screen,Urine Negative ng/mL (Cutoff= 300); Opiate Screen,Urine Negative ng/mL (Cutoff=300); Phencyclidine Screen,Urine Negative ng/mL (Cutoff=25)
[2020-06-18] MEDS ORDERED: Naloxone 0.4 MG/ML INJ IVP PRN (22:51)
[2020-06-18] MEDS ORDERED: Melatonin 3 MG TABLET PO PRN (22:51)
[2020-06-18] MEDS ORDERED: 0.9 % Sodium Chloride 1,000 ML IVC ONE (23:14)
[2020-06-18] MEDS ORDERED: Budesonide/Formoterol 80/4.5 1 PUFF INH IH SCH (23:15)
[2020-06-19] MEDS ORDERED: Aspirin 325 MG TABLET PO ONE (01:09)
[2020-06-19] MEDS ORDERED: Budesonide/Formoterol 80/4.5 1 PUFF INH IH PRN (01:12)
[2020-06-19 02:12] LABS: ABG Base Excess -5 mEq/L (-2 to 3); ABG HCO3 18 mEq/L (21-27); ABG Oxygen Saturation 91 % (95-98); ABG PCO2 28 mmHg (35-45); ABG PH 7.43 pH Units (7.32-7.45); ABG PO2 58 mmHg (85-104); ABG TCO2 19 mEq/L (20-26)
[2020-06-19 02:33] LABS: Hematocrit 34.1 % (37.5-50.1); Hemoglobin 10.9 g/dL (12.9-16.9); Mean Corpuscular Hemoglobin 31.9 pg (28.0-33.3); Mean Corpuscular Volume 99.7 fL (83.0-100.0); Mean Platelet Volume 8.9 fL (9.4-12.4); Platelet Count 165 K/mcL (140-400); Red Blood Count 3.42 M/mcL (4.19-5.50); Red Cell Distribution Width 14.4 % (11.5-14.5); Segmented Neutrophils % 73.6 %; White Blood Count 5.6 K/mcL (4.3-11.1)
[2020-06-19 02:34] LABS: Immature Granulocytes % 0.4 % (0-4); Lymphocytes # 0.9 K/mcL (0.6-4.6); Lymphocytes % 15.5 %; Monocytes # 0.6 K/mcL (0.0-1.3); Monocytes % 10.5 %; Neutrophils # 4.1 K/mcL (1.6-8.9)
[2020-06-19 02:54] LABS: Albumin 3.4 g/dL (3.5-5.7); Albumin/Globulin Ratio 1.4 (1.1-2.2); Bilirubin,Total 1.2 mg/dL (0.3-1.0); Calcium 8.1 mg/dL (8.6-10.3); Chol/HDL Ratio 2.5 (0-4.9); Globulin 2.5 g/dL (2.4-3.5); Potassium 3.9 mEq/L (3.5-5.1); Total Protein 5.9 g/dL (6.4-8.9)
[2020-06-19] MEDS ORDERED: Perflutren Lipid Microsphere 1.3 ML in 0.9 % Sodium Chloride 8.7 ML IVP PRN (04:22)
[2020-06-19] MEDS ORDERED: Cyanocobalamin (B-12) 1,000 MCG TABLET PO ONE (04:43)
[2020-06-19] MEDS ORDERED: *HR* Heparin 5,000 UNIT/ML VIAL SQ SCH (06:00)
[2020-06-19] MEDS: Dexamethasone 4 MG/ML VIAL IVP SCH ×2 (06:16→11:33)
[2020-06-19] MEDS: Acetaminophen 325 MG TABLET PO PRN (06:17)
[2020-06-19] MEDS ORDERED: Cyanocobalamin (B-12) 1,000 MCG/ML VIAL IM ONE (08:19)
[2020-06-19] MEDS ORDERED: Cyanocobalamin (B-12) 1,000 MCG TABLET PO SCH (09:00)
[2020-06-19] MEDS: *HR* Heparin 5,000 UNIT/ML VIAL SQ SCH ×2 (14:21→22:20)
[2020-06-20 01:41] LABS: Hemoglobin 10.8 g/dL (12.9-16.9); Immature Granulocytes % 0.5 % (0-4); Lymphocytes # 1.2 K/mcL (0.6-4.6); Lymphocytes % 15.4 %; Mean Corpuscular HGB Conc 32.7 g/dL (31.6-35.5); Mean Corpuscular Volume 97.9 fL (83.0-100.0); Mean Platelet Volume 9.2 fL (9.4-12.4); Monocytes # 0.4 K/mcL (0.0-1.3); Monocytes % 5.4 %; Neutrophils # 6.1 K/mcL (1.6-8.9); Platelet Count 172 K/mcL (140-400); Red Blood Count 3.37 M/mcL (4.19-5.50); Red Cell Distribution Width 14.3 % (11.5-14.5); Segmented Neutrophils % 78.7 %; White Blood Count 7.8 K/mcL (4.3-11.1)
[2020-06-20 01:56] LABS: BUN/Creatinine Ratio 25 (6-26); Blood Urea Nitrogen 31 mg/dL (8-23); Calcium 8.1 mg/dL (8.6-10.3); Carbon Dioxide 21 mEq/L (23-29); Chloride 110 mEq/L (98-107); Glucose 107 mg/dL (70-105); Magnesium 2.1 mg/dL (1.6-2.6); Osmolality,Calculated 293 (280-300); Phosphorous 3.7 mg/dL (2.7-4.5); Potassium 4.2 mEq/L (3.5-5.1); Sodium 138 mEq/L (136-145); eGFR For African Americans > 60 (> 60); eGFR For Non-African Americans 57 (> 60)
[2020-06-20] MEDS: *HR* Heparin 5,000 UNIT/ML VIAL SQ SCH ×3 (05:31→23:27)
[2020-06-20] MEDS: Cyanocobalamin (B-12) 1,000 MCG TABLET PO SCH (09:00)
[2020-06-20] MEDS: Dexamethasone 4 MG/ML VIAL IVP SCH (09:00)
[2020-06-21] MEDS: Acetaminophen 325 MG TABLET PO PRN (00:47)
[2020-06-21] MEDS: *HR* Heparin 5,000 UNIT/ML VIAL SQ SCH ×3 (04:45→21:01)
[2020-06-21 07:12] LABS: Hematocrit 36.4 % (37.5-50.1); Hemoglobin 11.7 g/dL (12.9-16.9); Immature Granulocytes % 0.9 % (0-4); Lymphocytes # 1.1 K/mcL (0.6-4.6); Lymphocytes % 14.6 %; Mean Corpuscular HGB Conc 32.1 g/dL (31.6-35.5); Mean Corpuscular Hemoglobin 31.4 pg (28.0-33.3); Mean Corpuscular Volume 97.6 fL (83.0-100.0); Mean Platelet Volume 9.7 fL (9.4-12.4); Monocytes # 0.3 K/mcL (0.0-1.3); Monocytes % 4.4 %; Platelet Count 170 K/mcL (140-400); Red Blood Count 3.73 M/mcL (4.19-5.50); Red Cell Distribution Width 14.2 % (11.5-14.5); Segmented Neutrophils % 80.1 %; White Blood Count 7.5 K/mcL (4.3-11.1)
[2020-06-21 07:21] LABS: BUN/Creatinine Ratio 21 (6-26); Blood Urea Nitrogen 27 mg/dL (8-23); Calcium 8.1 mg/dL (8.6-10.3); Carbon Dioxide 22 mEq/L (23-29); Chloride 105 mEq/L (98-107); Glucose 96 mg/dL (70-105); Magnesium 1.8 mg/dL (1.6-2.6); Osmolality,Calculated 287 (280-300); Phosphorous 3.2 mg/dL (2.7-4.5); Potassium 3.9 mEq/L (3.5-5.1); Sodium 136 mEq/L (136-145); eGFR For African Americans > 60 (> 60); eGFR For Non-African Americans 54 (> 60)
[2020-06-21] MEDS: Dexamethasone 4 MG/ML VIAL IVP SCH (08:29)
[2020-06-21] MEDS: Cyanocobalamin (B-12) 1,000 MCG TABLET PO SCH (08:30)
[2020-06-21] MEDS ORDERED: Isovue-370 500 ML BOTTLE IVP ONE (09:31)
[2020-06-21] MEDS: Piperacillin/Tazobactam 3.375 GM in 0.9 % Sodium Chloride Mini Bag 100 ML IVPB SCH ×2 (12:05→20:59)
[2020-06-21 13:35] LABS: ABG Base Excess -4 mEq/L (-2 to 3); ABG HCO3 18 mEq/L (21-27); ABG Oxygen Saturation 91 % (95-98); ABG PCO2 26 mmHg (35-45); ABG PH 7.46 pH Units (7.32-7.45); ABG PO2 56 mmHg (85-104); ABG TCO2 19 mEq/L (20-26)
[2020-06-21] MEDS: Vancomycin 1,250 MG/262.5 ML IV.SOLN IVPB SCH (14:12)
[2020-06-21] MEDS ORDERED: Remdesivir 200 MG in 0.9 % Sodium Chloride 100 ML IVPB ONE (16:00)
[2020-06-22 04:14] LABS: Basophils % 0.1 %; Hematocrit 36.9 % (37.5-50.1); Immature Granulocytes % 0.7 % (0-4); Lymphocytes # 1.2 K/mcL (0.6-4.6); Mean Corpuscular HGB Conc 32.5 g/dL (31.6-35.5); Mean Corpuscular Hemoglobin 31.7 pg (28.0-33.3); Mean Corpuscular Volume 97.4 fL (83.0-100.0); Mean Platelet Volume 9.7 fL (9.4-12.4); Monocytes # 0.4 K/mcL (0.0-1.3); Monocytes % 4.3 %; Neutrophils # 7.3 K/mcL (1.6-8.9); Platelet Count 155 K/mcL (140-400); Red Blood Count 3.79 M/mcL (4.19-5.50); Red Cell Distribution Width 14.4 % (11.5-14.5); Segmented Neutrophils % 81.9 %; White Blood Count 8.9 K/mcL (4.3-11.1)
[2020-06-22] MEDS ORDERED: Furosemide 40 MG/4 ML VIAL IVP ONE (04:24)
[2020-06-22 04:34] LABS: Albumin/Globulin Ratio 1.2 (1.1-2.2); BUN/Creatinine Ratio 22 (6-26); Bilirubin,Direct 0.2 mg/dL (0.0-0.2); Bilirubin,Indirect 0.8 mg/dL (0.0-1.0); Blood Urea Nitrogen 27 mg/dL (8-23); Calcium 7.9 mg/dL (8.6-10.3); Carbon Dioxide 18 mEq/L (23-29); Chloride 106 mEq/L (98-107); Globulin 2.5 g/dL (2.4-3.5); Glucose 122 mg/dL (70-105); Magnesium 1.9 mg/dL (1.6-2.6); Osmolality,Calculated 284 (280-300); Phosphorous 3.6 mg/dL (2.7-4.5); Sodium 134 mEq/L (136-145); Total Protein 5.5 g/dL (6.4-8.9); eGFR For African Americans > 60 (> 60); eGFR For Non-African Americans 56 (> 60)
[2020-06-22] MEDS: Piperacillin/Tazobactam 3.375 GM in 0.9 % Sodium Chloride Mini Bag 100 ML IVPB SCH ×3 (04:58→20:12)
[2020-06-22] MEDS: *HR* Heparin 5,000 UNIT/ML VIAL SQ SCH ×2 (05:02→12:32)
[2020-06-22] MEDS: Dexamethasone 4 MG/ML VIAL IVP SCH (07:42)
[2020-06-22] MEDS: Cyanocobalamin (B-12) 1,000 MCG TABLET PO SCH (07:42)
[2020-06-22] MEDS ORDERED: Dexamethasone 4 MG/ML VIAL IVP ONE (09:02)
[2020-06-22] MEDS: Vancomycin 1,250 MG/262.5 ML IV.SOLN IVPB SCH (12:32)
[2020-06-22] MEDS ORDERED: Remdesivir 100 MG in 0.9 % Sodium Chloride 100 ML IVPB SCH (16:00)
[2020-06-22] MEDS ORDERED: GuaiFENesin Liq 200 MG/10 ML UDC PO PRN (17:00)
[2020-06-22] MEDS: Remdesivir 100 MG in 0.9 % Sodium Chloride 100 ML IVPB SCH (17:56)
[2020-06-23] MEDS: Piperacillin/Tazobactam 3.375 GM in 0.9 % Sodium Chloride Mini Bag 100 ML IVPB SCH ×3 (04:55→20:10)
[2020-06-23 06:15] LABS: Basophils % 0.1 %; Hematocrit 40.9 % (37.5-50.1); Hemoglobin 13.3 g/dL (12.9-16.9); Immature Granulocytes % 0.7 % (0-4); Lymphocytes # 1.1 K/mcL (0.6-4.6); Lymphocytes % 12.2 %; Mean Corpuscular HGB Conc 32.5 g/dL (31.6-35.5); Mean Corpuscular Hemoglobin 32.2 pg (28.0-33.3); Mean Platelet Volume 9.9 fL (9.4-12.4); Monocytes # 0.5 K/mcL (0.0-1.3); Monocytes % 5.3 %; Neutrophils # 7.4 K/mcL (1.6-8.9); Platelet Count 203 K/mcL (140-400); Red Blood Count 4.13 M/mcL (4.19-5.50); Red Cell Distribution Width 14.6 % (11.5-14.5); Segmented Neutrophils % 81.7 %
[2020-06-23 06:35] LABS: Calcium 8.3 mg/dL (8.6-10.3); Magnesium 2.2 mg/dL (1.6-2.6); Phosphorous 4.3 mg/dL (2.7-4.5); Potassium 3.9 mEq/L (3.5-5.1)
[2020-06-23 06:39] LABS: Albumin 3.2 g/dL (3.5-5.7); Albumin/Globulin Ratio 1.1 (1.1-2.2); Bilirubin,Direct 0.4 mg/dL (0.0-0.2); Bilirubin,Indirect 0.8 mg/dL (0.0-1.0); Bilirubin,Total 1.2 mg/dL (0.3-1.0); Globulin 2.9 g/dL (2.4-3.5); Total Protein 6.1 g/dL (6.4-8.9)
[2020-06-23] MEDS: Dexamethasone 4 MG/ML VIAL IVP SCH (08:53)
[2020-06-23] MEDS: Cyanocobalamin (B-12) 1,000 MCG TABLET PO SCH (08:55)
[2020-06-23] MEDS ORDERED: Furosemide 20 MG/2 ML VIAL IVP SCH (09:00)
[2020-06-23] MEDS: *HR* Heparin 5,000 UNIT/ML VIAL SQ SCH ×2 (12:13→18:04)
[2020-06-23] MEDS: Vancomycin 1,250 MG/262.5 ML IV.SOLN IVPB SCH (12:24)
[2020-06-23] MEDS: Remdesivir 100 MG in 0.9 % Sodium Chloride 100 ML IVPB SCH (18:02)
[2020-06-24] MEDS: Piperacillin/Tazobactam 3.375 GM in 0.9 % Sodium Chloride Mini Bag 100 ML IVPB SCH ×3 (03:50→19:57)
[2020-06-24 04:56] LABS: Basophils % 0.1 %; Hematocrit 36.8 % (37.5-50.1); Hemoglobin 11.8 g/dL (12.9-16.9); Immature Granulocytes % 0.6 % (0-4); Lymphocytes # 0.7 K/mcL (0.6-4.6); Lymphocytes % 10.2 %; Mean Corpuscular HGB Conc 32.1 g/dL (31.6-35.5); Mean Corpuscular Volume 96.6 fL (83.0-100.0); Mean Platelet Volume 9.7 fL (9.4-12.4); Monocytes # 0.4 K/mcL (0.0-1.3); Monocytes % 5.5 %; Neutrophils # 5.6 K/mcL (1.6-8.9); Platelet Count 200 K/mcL (140-400); Red Blood Count 3.81 M/mcL (4.19-5.50); Red Cell Distribution Width 14.5 % (11.5-14.5); Segmented Neutrophils % 83.6 %; White Blood Count 6.7 K/mcL (4.3-11.1)
[2020-06-24 05:13] LABS: Alanine Aminotransferase 37 Units/L (7-52); Albumin 2.9 g/dL (3.5-5.7); Albumin/Globulin Ratio 1.1 (1.1-2.2); Alkaline Phosphatase 56 Units/L (34-104); Aspartate Amino Transferase 51 Units/L (13-39); BUN/Creatinine Ratio 35 (6-26); Bilirubin,Direct 0.3 mg/dL (0.0-0.2); Bilirubin,Indirect 0.8 mg/dL (0.0-1.0); Bilirubin,Total 1.1 mg/dL (0.3-1.0); Blood Urea Nitrogen 44 mg/dL (8-23); Calcium 8.3 mg/dL (8.6-10.3); Carbon Dioxide 23 mEq/L (23-29); Chloride 110 mEq/L (98-107); Globulin 2.6 g/dL (2.4-3.5); Glucose 129 mg/dL (70-105); Magnesium 2.2 mg/dL (1.6-2.6); Osmolality,Calculated 303 (280-300); Phosphorous 3.9 mg/dL (2.7-4.5); Potassium 3.9 mEq/L (3.5-5.1); Sodium 140 mEq/L (136-145); Total Protein 5.5 g/dL (6.4-8.9); eGFR For African Americans > 60 (> 60); eGFR For Non-African Americans 55 (> 60)
[2020-06-24] MEDS: *HR* Heparin 5,000 UNIT/ML VIAL SQ SCH ×2 (05:38→17:46)
[2020-06-24] MEDS: Dexamethasone 4 MG/ML VIAL IVP SCH (09:03)
[2020-06-24] MEDS: Cyanocobalamin (B-12) 1,000 MCG TABLET PO SCH (09:03)
[2020-06-24] MEDS: Acetaminophen 325 MG TABLET PO PRN (11:53)
[2020-06-24 14:53] LABS: Adenovirus Not Detected (Not Detect); Bordetella Pertussis Not Detected (Not Detect); Chlamydophila pneumoniae Not Detected (Not Detect); Coronavirus 229E Not Detected (Not Detect); Coronavirus HKU1 Not Detected (Not Detect); Coronavirus NL63 Not Detected (Not Detect); Coronavirus OC43 Not Detected (Not Detect); Human Metapneumovirus Not Detected (Not Detect); Human Rhinovirus/Enterovirus Not Detected (Not Detect); Influenza A Subtype 2009 H1 Not Detected (Not Detect); Influenza B Not Detected (Not Detect); Mycoplasma pneumoniae Not Detected (Not Detect); Parainfluenza Virus 1 Not Detected (Not Detect); Parainfluenza Virus 2 Not Detected (Not Detect); Parainfluenza Virus 3 Not Detected (Not Detect); Parainfluenza Virus 4 Not Detected (Not Detect); Respiratory Syncytial Virus Not Detected (Not Detect)
[2020-06-24] MEDS: Remdesivir 100 MG in 0.9 % Sodium Chloride 100 ML IVPB SCH (17:46)
[2020-06-25 02:39] LABS: Basophils % 0.2 %; Hematocrit 35.3 % (37.5-50.1); Hemoglobin 11.7 g/dL (12.9-16.9); Immature Granulocytes % 0.6 % (0-4); Lymphocytes # 0.5 K/mcL (0.6-4.6); Mean Corpuscular HGB Conc 33.1 g/dL (31.6-35.5); Mean Corpuscular Hemoglobin 32.1 pg (28.0-33.3); Mean Platelet Volume 9.9 fL (9.4-12.4); Monocytes # 0.4 K/mcL (0.0-1.3); Monocytes % 7.3 %; Neutrophils # 4.4 K/mcL (1.6-8.9); Platelet Count 206 K/mcL (140-400); Red Blood Count 3.64 M/mcL (4.19-5.50); Red Cell Distribution Width 14.2 % (11.5-14.5); Segmented Neutrophils % 82.9 %; White Blood Count 5.4 K/mcL (4.3-11.1)
[2020-06-25 03:01] LABS: BUN/Creatinine Ratio 34 (6-26); Blood Urea Nitrogen 39 mg/dL (8-23); Calcium 7.9 mg/dL (8.6-10.3); Carbon Dioxide 18 mEq/L (23-29); Chloride 110 mEq/L (98-107); Glucose 123 mg/dL (70-105); Magnesium 2.2 mg/dL (1.6-2.6); Osmolality,Calculated 297 (280-300); Sodium 138 mEq/L (136-145); eGFR For African Americans > 60 (> 60); eGFR For Non-African Americans > 60 (> 60)
[2020-06-25 03:02] LABS: Albumin 2.8 g/dL (3.5-5.7); Albumin/Globulin Ratio 1.2 (1.1-2.2); Bilirubin,Direct 0.3 mg/dL (0.0-0.2); Bilirubin,Indirect 0.9 mg/dL (0.0-1.0); Bilirubin,Total 1.2 mg/dL (0.3-1.0); Globulin 2.4 g/dL (2.4-3.5); Total Protein 5.2 g/dL (6.4-8.9)
[2020-06-25] MEDS: Piperacillin/Tazobactam 3.375 GM in 0.9 % Sodium Chloride Mini Bag 100 ML IVPB SCH ×2 (03:54→12:30)
[2020-06-25] MEDS: *HR* Heparin 5,000 UNIT/ML VIAL SQ SCH ×2 (06:51→18:22)
[2020-06-25] MEDS: Dexamethasone 4 MG/ML VIAL IVP SCH (08:06)
[2020-06-25] MEDS: Cyanocobalamin (B-12) 1,000 MCG TABLET PO SCH (08:08)
[2020-06-25] MEDS ORDERED: Ipratropium 1 PUFF INHALER IH PRN (15:00)
[2020-06-25] MEDS: Remdesivir 100 MG in 0.9 % Sodium Chloride 100 ML IVPB SCH (18:21)
[2020-06-25] MEDS: Budesonide/Formoterol 160/4.5 1 PUFF INH IH SCH (19:51)
[2020-06-25] MEDS: Ampicillin 2 GM in 0.9 % Sodium Chloride Mini Bag 100 ML IVPB SCH (20:14)
[2020-06-26] MEDS: Ampicillin 2 GM in 0.9 % Sodium Chloride Mini Bag 100 ML IVPB SCH ×4 (01:13→21:04)
[2020-06-26 03:26] LABS: Hematocrit 32.9 % (37.5-50.1); Hemoglobin 10.8 g/dL (12.9-16.9); Mean Corpuscular HGB Conc 32.8 g/dL (31.6-35.5); Mean Corpuscular Volume 94.5 fL (83.0-100.0); Mean Platelet Volume 9.8 fL (9.4-12.4); Platelet Count 227 K/mcL (140-400); Red Blood Count 3.48 M/mcL (4.19-5.50); Red Cell Distribution Width 14.3 % (11.5-14.5); White Blood Count 5.8 K/mcL (4.3-11.1)
[2020-06-26 03:46] LABS: Albumin 2.7 g/dL (3.5-5.7); Albumin/Globulin Ratio 1.1 (1.1-2.2); BUN/Creatinine Ratio 34 (6-26); Bilirubin,Direct 0.3 mg/dL (0.0-0.2); Bilirubin,Indirect 0.9 mg/dL (0.0-1.0); Bilirubin,Total 1.2 mg/dL (0.3-1.0); Blood Urea Nitrogen 34 mg/dL (8-23); Calcium 7.9 mg/dL (8.6-10.3); Carbon Dioxide 21 mEq/L (23-29); Chloride 110 mEq/L (98-107); Globulin 2.4 g/dL (2.4-3.5); Glucose 123 mg/dL (70-105); Osmolality,Calculated 293 (280-300); Potassium 4.2 mEq/L (3.5-5.1); Sodium 137 mEq/L (136-145); Total Protein 5.1 g/dL (6.4-8.9); eGFR For African Americans > 60 (> 60); eGFR For Non-African Americans > 60 (> 60)
[2020-06-26] MEDS: *HR* Heparin 5,000 UNIT/ML VIAL SQ SCH (05:37)
[2020-06-26] MEDS ORDERED: NON-FORMULARY MEDICATION 1 EACH EACH (Fluticasone/Umeclidin/Vilanter [Trelegy Ellipta 100- IH SCH (09:00)
[2020-06-26] MEDS ORDERED: Furosemide 20 MG TABLET PO SCH (09:00)
[2020-06-26] MEDS: Aspirin 81 MG TAB.CHEW PO SCH (09:14)
[2020-06-26] MEDS: Dexamethasone 4 MG/ML VIAL IVP SCH (09:14)
[2020-06-26] MEDS: Cyanocobalamin (B-12) 1,000 MCG TABLET PO SCH (09:14)
[2020-06-26] MEDS: Acetaminophen 325 MG TABLET PO PRN (09:14)
[2020-06-26] MEDS: Budesonide/Formoterol 160/4.5 1 PUFF INH IH SCH ×2 (11:28→21:48)
[2020-06-26] MEDS: Tiotropium 10 INH DOSE IH SCH (11:28)
[2020-06-27] MEDS: Ampicillin 2 GM in 0.9 % Sodium Chloride Mini Bag 100 ML IVPB SCH ×2 (01:16→09:05)
[2020-06-27] MEDS: *HR* Enoxaparin 40 MG/0.4 ML SYRINGE SQ SCH (05:13)
[2020-06-27 06:13] LABS: Hematocrit 32.7 % (37.5-50.1); Hemoglobin 10.9 g/dL (12.9-16.9); Immature Granulocytes % 0.9 % (0-4); Lymphocytes # 0.6 K/mcL (0.6-4.6); Lymphocytes % 9.4 %; Mean Corpuscular HGB Conc 33.3 g/dL (31.6-35.5); Mean Corpuscular Hemoglobin 31.2 pg (28.0-33.3); Mean Corpuscular Volume 93.7 fL (83.0-100.0); Mean Platelet Volume 9.4 fL (9.4-12.4); Monocytes # 0.5 K/mcL (0.0-1.3); Monocytes % 7.9 %; Neutrophils # 5.5 K/mcL (1.6-8.9); Nucleated Red Blood Cells 0.3 /100 WBC (0); Platelet Count 269 K/mcL (140-400); Red Blood Count 3.49 M/mcL (4.19-5.50); Red Cell Distribution Width 14.4 % (11.5-14.5); Segmented Neutrophils % 81.8 %; White Blood Count 6.7 K/mcL (4.3-11.1)
[2020-06-27 06:17] LABS: Alanine Aminotransferase 43 Units/L (7-52); Albumin 2.6 g/dL (3.5-5.7); Albumin/Globulin Ratio 1.1 (1.1-2.2); Alkaline Phosphatase 59 Units/L (34-104); Aspartate Amino Transferase 36 Units/L (13-39); BUN/Creatinine Ratio 32 (6-26); Bilirubin,Total 1.4 mg/dL (0.3-1.0); Blood Urea Nitrogen 31 mg/dL (8-23); Carbon Dioxide 23 mEq/L (23-29); Chloride 108 mEq/L (98-107); Globulin 2.3 g/dL (2.4-3.5); Glucose 114 mg/dL (70-105); Osmolality,Calculated 291 (280-300); Potassium 4.1 mEq/L (3.5-5.1); Sodium 137 mEq/L (136-145); Total Protein 4.9 g/dL (6.4-8.9); eGFR For African Americans > 60 (> 60); eGFR For Non-African Americans > 60 (> 60)
[2020-06-27] MEDS: Tiotropium 10 INH DOSE IH SCH (07:57)
[2020-06-27] MEDS: Budesonide/Formoterol 160/4.5 1 PUFF INH IH SCH ×2 (07:57→20:16)
[2020-06-27] MEDS: Cyanocobalamin (B-12) 1,000 MCG TABLET PO SCH (09:03)
[2020-06-27] MEDS: Aspirin 81 MG TAB.CHEW PO SCH (09:03)
[2020-06-27] MEDS: Furosemide 20 MG/2 ML VIAL IVP SCH (09:04)
[2020-06-27] MEDS: Dexamethasone 4 MG/ML VIAL IVP SCH (09:04)
[2020-06-28 02:14] LABS: Basophils % 0.2 %; Hematocrit 40.5 % (37.5-50.1); Immature Granulocytes % 0.9 % (0-4); Lymphocytes # 1.3 K/mcL (0.6-4.6); Lymphocytes % 10.7 %; Mean Corpuscular HGB Conc 32.3 g/dL (31.6-35.5); Mean Corpuscular Hemoglobin 30.9 pg (28.0-33.3); Mean Corpuscular Volume 95.5 fL (83.0-100.0); Mean Platelet Volume 9.3 fL (9.4-12.4); Monocytes # 0.8 K/mcL (0.0-1.3); Monocytes % 6.8 %; Nucleated Red Blood Cells 0.2 /100 WBC (0); Platelet Count 381 K/mcL (140-400); Red Blood Count 4.24 M/mcL (4.19-5.50); Red Cell Distribution Width 14.5 % (11.5-14.5); Segmented Neutrophils % 81.4 %
[2020-06-28 02:20] LABS: Hemoglobin 13.1 g/dL (12.9-16.9); Neutrophils # 9.5 K/mcL (1.6-8.9); White Blood Count 11.7 K/mcL (4.3-11.1)
[2020-06-28 02:32] LABS: BUN/Creatinine Ratio 32 (6-26); Blood Urea Nitrogen 35 mg/dL (8-23); Carbon Dioxide 24 mEq/L (23-29); Chloride 104 mEq/L (98-107); Glucose 107 mg/dL (70-105); Osmolality,Calculated 292 (280-300); Potassium 4.3 mEq/L (3.5-5.1); Sodium 137 mEq/L (136-145); eGFR For African Americans > 60 (> 60); eGFR For Non-African Americans > 60 (> 60)
[2020-06-28] MEDS: *HR* Enoxaparin 40 MG/0.4 ML SYRINGE SQ SCH (04:54)
[2020-06-28] MEDS ORDERED: *HR* Heparin 5,000 UNIT/ML VIAL IVP ONE (05:00)
[2020-06-28] MEDS ORDERED: *HR* Heparin 5,000 UNIT/ML VIAL IVP PRN ×2 (05:00)
[2020-06-28] MEDS ORDERED: Perflutren Lipid Microsphere 1.3 ML in 0.9 % Sodium Chloride 8.7 ML IVP PRN (05:04)
[2020-06-28] MEDS: Heparin 25,000UNIT/250ML 1/2NS 25,000 UNIT/250 ML IV.SOLN IVC SCH (05:42)
[2020-06-28 06:32] LABS: Hematocrit 37.6 % (37.5-50.1); Hemoglobin 12.5 g/dL (12.9-16.9); Mean Corpuscular HGB Conc 33.2 g/dL (31.6-35.5); Mean Corpuscular Hemoglobin 31.6 pg (28.0-33.3); Mean Corpuscular Volume 94.9 fL (83.0-100.0); Mean Platelet Volume 9.7 fL (9.4-12.4); Platelet Count 335 K/mcL (140-400); Red Blood Count 3.96 M/mcL (4.19-5.50); Red Cell Distribution Width 14.5 % (11.5-14.5); White Blood Count 12.9 K/mcL (4.3-11.1)
[2020-06-28 06:40] LABS: INR 1.1; Prothrombin Time 13.2 Seconds (9.4-12.1)
[2020-06-28 06:43] LABS: Heparin anti-factor XA UFH 1.3 IU/mL (0.30-0.70)
[2020-06-28] MEDS: Budesonide/Formoterol 160/4.5 1 PUFF INH IH SCH ×2 (08:12→19:42)
[2020-06-28] MEDS: Tiotropium 10 INH DOSE IH SCH (08:12)
[2020-06-28] MEDS: Cyanocobalamin (B-12) 1,000 MCG TABLET PO SCH (10:33)
[2020-06-28] MEDS: Aspirin 81 MG TAB.CHEW PO SCH (10:34)
[2020-06-28] MEDS: Dexamethasone 4 MG/ML VIAL IVP SCH (10:34)
[2020-06-28] MEDS: Furosemide 20 MG/2 ML VIAL IVP SCH (10:35)
[2020-06-29 01:05] LABS: Basophils % 0.1 %; Hematocrit 39.1 % (37.5-50.1); Immature Granulocytes % 0.8 % (0-4); Lymphocytes # 0.9 K/mcL (0.6-4.6); Lymphocytes % 8.3 %; Mean Corpuscular HGB Conc 33.2 g/dL (31.6-35.5); Mean Corpuscular Hemoglobin 31.6 pg (28.0-33.3); Mean Corpuscular Volume 95.1 fL (83.0-100.0); Mean Platelet Volume 9.6 fL (9.4-12.4); Monocytes # 0.7 K/mcL (0.0-1.3); Monocytes % 6.4 %; Neutrophils # 8.9 K/mcL (1.6-8.9); Platelet Count 387 K/mcL (140-400); Red Blood Count 4.11 M/mcL (4.19-5.50); Red Cell Distribution Width 14.6 % (11.5-14.5); Segmented Neutrophils % 84.4 %; White Blood Count 10.6 K/mcL (4.3-11.1)
[2020-06-29 01:24] LABS: BUN/Creatinine Ratio 45 (6-26); Blood Urea Nitrogen 47 mg/dL (8-23); Calcium 8.2 mg/dL (8.6-10.3); Carbon Dioxide 22 mEq/L (23-29); Chloride 107 mEq/L (98-107); Glucose 119 mg/dL (70-105); Osmolality,Calculated 303 (280-300); Potassium 4.2 mEq/L (3.5-5.1); Sodium 140 mEq/L (136-145); eGFR For African Americans > 60 (> 60); eGFR For Non-African Americans > 60 (> 60)
[2020-06-29] MEDS: Furosemide 20 MG/2 ML VIAL IVP SCH (07:52)
[2020-06-29] MEDS: Dexamethasone 4 MG/ML VIAL IVP SCH (07:52)
[2020-06-29] MEDS: Aspirin 81 MG TAB.CHEW PO SCH (07:52)
[2020-06-29] MEDS: Cyanocobalamin (B-12) 1,000 MCG TABLET PO SCH (07:53)
[2020-06-29] MEDS: Tiotropium 10 INH DOSE IH SCH (08:20)
[2020-06-29] MEDS: Budesonide/Formoterol 160/4.5 1 PUFF INH IH SCH ×2 (08:21→19:54)
[2020-06-29] MEDS: Heparin 25,000UNIT/250ML 1/2NS 25,000 UNIT/250 ML IV.SOLN IVC SCH (15:20)
[2020-06-30 06:20] LABS: Hematocrit 41.5 % (37.5-50.1); Hemoglobin 13.6 g/dL (12.9-16.9); Mean Corpuscular HGB Conc 32.8 g/dL (31.6-35.5); Mean Corpuscular Hemoglobin 31.6 pg (28.0-33.3); Mean Corpuscular Volume 96.5 fL (83.0-100.0); Mean Platelet Volume 9.6 fL (9.4-12.4); Platelet Count 470 K/mcL (140-400); Red Cell Distribution Width 14.7 % (11.5-14.5); White Blood Count 18.6 K/mcL (4.3-11.1)
[2020-06-30 06:55] LABS: BUN/Creatinine Ratio 40 (6-26); Blood Urea Nitrogen 46 mg/dL (8-23); Calcium 8.8 mg/dL (8.6-10.3); Carbon Dioxide 26 mEq/L (23-29); Chloride 105 mEq/L (98-107); Glucose 83 mg/dL (70-105); Osmolality,Calculated 301 (280-300); Potassium 4.1 mEq/L (3.5-5.1); Sodium 140 mEq/L (136-145); eGFR For African Americans > 60 (> 60); eGFR For Non-African Americans > 60 (> 60)
[2020-06-30] MEDS: Tiotropium 10 INH DOSE IH SCH (07:49)
[2020-06-30] MEDS: Budesonide/Formoterol 160/4.5 1 PUFF INH IH SCH ×2 (07:50→19:36)
[2020-06-30] MEDS: Aspirin 81 MG TAB.CHEW PO SCH (09:24)
[2020-06-30] MEDS: Furosemide 20 MG/2 ML VIAL IVP SCH (09:24)
[2020-06-30] MEDS: Dexamethasone 4 MG/ML VIAL IVP SCH (09:24)
[2020-06-30] MEDS: Cyanocobalamin (B-12) 1,000 MCG TABLET PO SCH (09:24)
[2020-07-01] MEDS: Cyanocobalamin (B-12) 1,000 MCG TABLET PO SCH ×2 (07:42→08:05)
[2020-07-01] MEDS: Aspirin 81 MG TAB.CHEW PO SCH ×2 (07:42→08:05)
[2020-07-01] MEDS: Dexamethasone 4 MG/ML VIAL IVP SCH (07:42)
[2020-07-01] MEDS: *HR* LORazepam 2 MG/ML VIAL IVP ONE (07:43)
[2020-07-01] MEDS: Furosemide 20 MG/2 ML VIAL IVP SCH (07:45)
[2020-07-01] MEDS: Heparin 25,000UNIT/250ML 1/2NS 25,000 UNIT/250 ML IV.SOLN IVC SCH ×2 (07:48→10:34)
[2020-07-01 08:47] LABS: Basophils % 0.2 %; Hematocrit 46.1 % (37.5-50.1); Hemoglobin 14.8 g/dL (12.9-16.9); Immature Granulocytes % 0.6 % (0-4); Lymphocytes # 1.8 K/mcL (0.6-4.6); Lymphocytes % 8.8 %; Mean Corpuscular HGB Conc 32.1 g/dL (31.6-35.5); Mean Corpuscular Hemoglobin 31.2 pg (28.0-33.3); Mean Corpuscular Volume 97.1 fL (83.0-100.0); Mean Platelet Volume 9.4 fL (9.4-12.4); Monocytes # 1.3 K/mcL (0.0-1.3); Monocytes % 6.5 %; Neutrophils # 17.3 K/mcL (1.6-8.9); Platelet Count 611 K/mcL (140-400); Red Blood Count 4.75 M/mcL (4.19-5.50); Red Cell Distribution Width 14.5 % (11.5-14.5); Segmented Neutrophils % 83.9 %; White Blood Count 20.6 K/mcL (4.3-11.1)
[2020-07-01] MEDS: Dexmedetomidine HCl 400 MCG/100 ML MLS IVC SCH ×2 (08:53→16:34)
[2020-07-01] MEDS: Budesonide/Formoterol 160/4.5 1 PUFF INH IH SCH ×2 (09:06→21:38)
[2020-07-01] MEDS: Tiotropium 10 INH DOSE IH SCH (09:06)
[2020-07-01 09:11] LABS: Calcium 8.9 mg/dL (8.6-10.3); Potassium 4.7 mEq/L (3.5-5.1)
[2020-07-01 10:51] LABS: VBG Ionized Calcium 1.07 mmol/L (1.15-1.35)
[2020-07-01 11:11] LABS: Alanine Aminotransferase 39 Units/L (7-52); Albumin 3.1 g/dL (3.5-5.7); Albumin/Globulin Ratio 1.1 (1.1-2.2); Alkaline Phosphatase 81 Units/L (34-104); Aspartate Amino Transferase 24 Units/L (13-39); BUN/Creatinine Ratio 46 (6-26); Bilirubin,Direct 0.5 mg/dL (0.0-0.2); Bilirubin,Indirect 1.5 mg/dL (0.0-1.0); Blood Urea Nitrogen 62 mg/dL (8-23); Calcium 8.6 mg/dL (8.6-10.3); Carbon Dioxide 23 mEq/L (23-29); Chloride 105 mEq/L (98-107); Globulin 2.7 g/dL (2.4-3.5); Glucose 97 mg/dL (70-105); Magnesium 2.5 mg/dL (1.6-2.6); Osmolality,Calculated 306 (280-300); Phosphorous 5.6 mg/dL (2.7-4.5); Potassium 4.6 mEq/L (3.5-5.1); Sodium 139 mEq/L (136-145); Total Protein 5.8 g/dL (6.4-8.9); eGFR For African Americans > 60 (> 60); eGFR For Non-African Americans 50 (> 60)
[2020-07-01] MEDS ORDERED: Lidocaine -MPF 1% 5 ML AMPUL INFILT ONE (12:25)
[2020-07-01] MEDS: Piperacillin/Tazobactam 3.375 GM in 0.9 % Sodium Chloride Mini Bag 100 ML IVPB SCH ×2 (17:21→23:14)
[2020-07-01] MEDS: Norepinephrine 4 MG/254 ML IV.SOLN IVC SCH (21:16)
[2020-07-01 21:27] LABS: Bilirubin,Urine Negative (Negative); Blood,Urine Negative (Negative); Clarity,Urine Clear (Clear); Color,Urine Yellow (Yellow); Glucose,Urine (UA) Normal (Normal); Ketones,Urine Negative (Negative); Leukocyte Esterase,Urine Negative (Negative); Nitrite,Urine Negative (Negative); PH,Urine 5.5 pH Units (5.0-8.0); Protein,Urine Negative (Neg-Trace); Urobilinogen,Urine Normal (Normal)
[2020-07-02] MEDS: Dexmedetomidine HCl 400 MCG/100 ML MLS IVC SCH ×3 (00:23→17:18)
[2020-07-02] MEDS: Heparin 25,000UNIT/250ML 1/2NS 25,000 UNIT/250 ML IV.SOLN IVC SCH ×2 (04:07→22:18)
[2020-07-02 04:33] LABS: Basophils % 0.1 %; Hematocrit 39.5 % (37.5-50.1); Immature Granulocytes % 0.4 % (0-4); Lymphocytes # 1.2 K/mcL (0.6-4.6); Lymphocytes % 8.9 %; Mean Corpuscular HGB Conc 32.9 g/dL (31.6-35.5); Mean Corpuscular Hemoglobin 31.6 pg (28.0-33.3); Mean Corpuscular Volume 96.1 fL (83.0-100.0); Mean Platelet Volume 9.7 fL (9.4-12.4); Monocytes # 0.9 K/mcL (0.0-1.3); Monocytes % 6.8 %; Platelet Count 441 K/mcL (140-400); Red Blood Count 4.11 M/mcL (4.19-5.50); Red Cell Distribution Width 14.4 % (11.5-14.5); Segmented Neutrophils % 83.8 %; White Blood Count 13.2 K/mcL (4.3-11.1)
[2020-07-02 04:49] LABS: Calcium 8.5 mg/dL (8.6-10.3); Magnesium 2.7 mg/dL (1.6-2.6); Phosphorous 6.3 mg/dL (2.7-4.5); Potassium 4.2 mEq/L (3.5-5.1)
[2020-07-02] MEDS: Furosemide 20 MG/2 ML VIAL IVP SCH (07:45)
[2020-07-02] MEDS: Dexamethasone 4 MG/ML VIAL IVP SCH (07:45)
[2020-07-02] MEDS: Piperacillin/Tazobactam 3.375 GM in 0.9 % Sodium Chloride Mini Bag 100 ML IVPB SCH ×3 (07:45→23:44)
[2020-07-02] MEDS: Aspirin 81 MG TAB.CHEW PO SCH (07:46)
[2020-07-02] MEDS: Cyanocobalamin (B-12) 1,000 MCG TABLET PO SCH (07:47)
[2020-07-02] MEDS: Tiotropium 10 INH DOSE IH SCH (09:28)
[2020-07-02] MEDS: Budesonide/Formoterol 160/4.5 1 PUFF INH IH SCH ×2 (09:28→21:41)
[2020-07-03] MEDS: Dexmedetomidine HCl 400 MCG/100 ML MLS IVC SCH ×4 (01:07→21:00)
[2020-07-03] MEDS ORDERED: *HR* LORazepam 2 MG/ML VIAL IVP ONE (03:02)
[2020-07-03] MEDS: *HR* LORazepam 2 MG/ML VIAL IVP ONE (04:00)
[2020-07-03 05:45] LABS: Basophils % 0.1 %; Hemoglobin 13.6 g/dL (12.9-16.9); Immature Granulocytes % 0.8 % (0-4); Lymphocytes # 1.4 K/mcL (0.6-4.6); Lymphocytes % 5.5 %; Mean Corpuscular HGB Conc 32.4 g/dL (31.6-35.5); Mean Corpuscular Hemoglobin 31.1 pg (28.0-33.3); Mean Corpuscular Volume 95.9 fL (83.0-100.0); Mean Platelet Volume 9.7 fL (9.4-12.4); Monocytes # 1.8 K/mcL (0.0-1.3); Monocytes % 7.1 %; Neutrophils # 21.5 K/mcL (1.6-8.9); Platelet Count 622 K/mcL (140-400); Red Blood Count 4.38 M/mcL (4.19-5.50); Red Cell Distribution Width 14.4 % (11.5-14.5); Segmented Neutrophils % 86.5 %
[2020-07-03 05:52] LABS: Heparin anti-factor XA UFH 0.46 IU/mL (0.30-0.70)
[2020-07-03 05:53] LABS: INR 1.1; Prothrombin Time 12.4 Seconds (9.4-12.1); White Blood Count 24.9 K/mcL (4.3-11.1)
[2020-07-03 06:05] LABS: Calcium 8.8 mg/dL (8.6-10.3); Magnesium 2.9 mg/dL (1.6-2.6); Phosphorous 5.1 mg/dL (2.7-4.5); Potassium 4.1 mEq/L (3.5-5.1)
[2020-07-03 06:09] LABS: Platelet Estimate Marked Increase (Normal)
[2020-07-03] MEDS: Piperacillin/Tazobactam 3.375 GM in 0.9 % Sodium Chloride Mini Bag 100 ML IVPB SCH ×3 (07:58→23:23)
[2020-07-03] MEDS: Dexamethasone 4 MG/ML VIAL IVP SCH (07:59)
[2020-07-03] MEDS: Aspirin 81 MG TAB.CHEW PO SCH (08:00)
[2020-07-03] MEDS: Cyanocobalamin (B-12) 1,000 MCG TABLET PO SCH (08:00)
[2020-07-03] MEDS: Tiotropium 10 INH DOSE IH SCH (08:01)
[2020-07-03] MEDS: Budesonide/Formoterol 160/4.5 1 PUFF INH IH SCH ×2 (08:01→21:28)
[2020-07-03] MEDS ORDERED: Ziprasidone 10 MG in Water for inj. (sterile) 0.5 ML IM PRN (10:33)
[2020-07-03] MEDS: Pantoprazole 40 MG VIAL IVP SCH (14:50)
[2020-07-03] MEDS: *HR* Metoprolol 5 MG/5 ML VIAL IVP SCH ×2 (17:33→23:24)
[2020-07-03] MEDS: Norepinephrine 4 MG/254 ML IV.SOLN IVC SCH (23:09)
[2020-07-04] MEDS: Dexmedetomidine HCl 400 MCG/100 ML MLS IVC SCH ×5 (02:31→20:27)
[2020-07-04] MEDS: Heparin 25,000UNIT/250ML 1/2NS 25,000 UNIT/250 ML IV.SOLN IVC SCH ×2 (03:05→11:03)
[2020-07-04 04:05] LABS: Basophils % 0.2 %; Hematocrit 41.1 % (37.5-50.1); Hemoglobin 13.4 g/dL (12.9-16.9); Immature Granulocytes % 0.6 % (0-4); Lymphocytes # 1.1 K/mcL (0.6-4.6); Lymphocytes % 4.5 %; Mean Corpuscular HGB Conc 32.6 g/dL (31.6-35.5); Mean Corpuscular Hemoglobin 31.2 pg (28.0-33.3); Mean Corpuscular Volume 95.8 fL (83.0-100.0); Mean Platelet Volume 9.6 fL (9.4-12.4); Monocytes # 1.4 K/mcL (0.0-1.3); Monocytes % 5.6 %; Neutrophils # 21.6 K/mcL (1.6-8.9); Platelet Count 386 K/mcL (140-400); Red Blood Count 4.29 M/mcL (4.19-5.50); Red Cell Distribution Width 14.6 % (11.5-14.5); Segmented Neutrophils % 89.1 %; White Blood Count 24.2 K/mcL (4.3-11.1)
[2020-07-04 04:09] LABS: Albumin 3.1 g/dL (3.5-5.7); Albumin/Globulin Ratio 1.1 (1.1-2.2); Bilirubin,Total 2.2 mg/dL (0.3-1.0); Calcium 8.7 mg/dL (8.6-10.3); Globulin 2.7 g/dL (2.4-3.5); Magnesium 2.8 mg/dL (1.6-2.6); Phosphorous 3.8 mg/dL (2.7-4.5); Potassium 4.2 mEq/L (3.5-5.1); Total Protein 5.8 g/dL (6.4-8.9)
[2020-07-04 04:22] LABS: Basophils # 0.1 K/mcL (0.0-0.2)
[2020-07-04 04:23] LABS: Platelet Estimate Normal (Normal)
[2020-07-04] MEDS: *HR* Metoprolol 5 MG/5 ML VIAL IVP SCH ×3 (05:33→16:30)
[2020-07-04] MEDS: Piperacillin/Tazobactam 3.375 GM in 0.9 % Sodium Chloride Mini Bag 100 ML IVPB SCH ×3 (07:24→23:12)
[2020-07-04] MEDS: Dexamethasone 4 MG/ML VIAL IVP SCH (07:46)
[2020-07-04] MEDS: Pantoprazole 40 MG VIAL IVP SCH (07:46)
[2020-07-04] MEDS: Tiotropium 10 INH DOSE IH SCH (08:08)
[2020-07-04] MEDS: Budesonide/Formoterol 160/4.5 1 PUFF INH IH SCH ×2 (08:08→20:52)
[2020-07-04] MEDS: Aspirin 81 MG TAB.CHEW PO SCH (08:26)
[2020-07-04] MEDS: Cyanocobalamin (B-12) 1,000 MCG TABLET PO SCH (08:26)
[2020-07-04] MEDS: Norepinephrine 4 MG/254 ML IV.SOLN IVC SCH (15:36)
[2020-07-04] MEDS ORDERED: *HR* Metoprolol 5 MG/5 ML VIAL IVP SCH (16:30)
[2020-07-04] MEDS: *HR* Metoprolol 5 MG/5 ML VIAL IVP PRN ×2 (19:33→23:22)
[2020-07-05] MEDS: *HR* Metoprolol 5 MG/5 ML VIAL IVP PRN (00:43)
[2020-07-05] MEDS: Dexmedetomidine HCl 400 MCG/100 ML MLS IVC SCH ×4 (02:25→19:31)
[2020-07-05 03:29] LABS: Basophils % 0.1 %; Mean Platelet Volume 9.7 fL (9.4-12.4); Platelet Count 398 K/mcL (140-400)
[2020-07-05 03:31] LABS: Hematocrit 42.1 % (37.5-50.1); Hemoglobin 13.8 g/dL (12.9-16.9); Immature Granulocytes % 0.9 % (0-4); Lymphocytes # 1.2 K/mcL (0.6-4.6); Mean Corpuscular HGB Conc 32.8 g/dL (31.6-35.5); Mean Corpuscular Hemoglobin 32.2 pg (28.0-33.3); Mean Corpuscular Volume 98.4 fL (83.0-100.0); Monocytes # 1.4 K/mcL (0.0-1.3); Monocytes % 4.6 %; Red Blood Count 4.28 M/mcL (4.19-5.50); Red Cell Distribution Width 14.7 % (11.5-14.5); Segmented Neutrophils % 90.4 %; White Blood Count 29.5 K/mcL (4.3-11.1)
[2020-07-05] MEDS: DilTIAZem 50 MG in 0.9 % Sodium Chloride 40 ML IVC SCH ×5 (03:37→18:09)
[2020-07-05 03:41] LABS: Neutrophils # 26.7 K/mcL (1.6-8.9)
[2020-07-05 04:27] LABS: Heparin anti-factor XA UFH 0.3 IU/mL (0.30-0.70)
[2020-07-05 04:28] LABS: INR 1.1; Prothrombin Time 12.8 Seconds (9.4-12.1)
[2020-07-05 04:29] LABS: Activated Partial Thrombo Time 43.6 Seconds (26.0-36.0)
[2020-07-05] MEDS ORDERED: *HR* LORazepam 2 MG/ML VIAL ONE ×2 (04:33→10:39)
[2020-07-05] MEDS ORDERED: *HR* LORazepam 2 MG/ML VIAL IVP ONE ×2 (04:43→10:38)
[2020-07-05 04:48] LABS: Alanine Aminotransferase 27 Units/L (7-52); Albumin 2.9 g/dL (3.5-5.7); Alkaline Phosphatase 86 Units/L (34-104); Aspartate Amino Transferase 24 Units/L (13-39); BUN/Creatinine Ratio 50 (6-26); Bilirubin,Total 1.3 mg/dL (0.3-1.0); Blood Urea Nitrogen 65 mg/dL (8-23); Calcium 8.7 mg/dL (8.6-10.3); Carbon Dioxide 22 mEq/L (23-29); Chloride 116 mEq/L (98-107); Globulin 2.9 g/dL (2.4-3.5); Glucose 120 mg/dL (70-105); Magnesium 2.6 mg/dL (1.6-2.6); Osmolality,Calculated 326 (280-300); Phosphorous 1.6 mg/dL (2.7-4.5); Potassium 4.3 mEq/L (3.5-5.1); Sodium 148 mEq/L (136-145); Total Protein 5.8 g/dL (6.4-8.9); eGFR For African Americans > 60 (> 60); eGFR For Non-African Americans 53 (> 60)
[2020-07-05 05:37] LABS: Platelet Estimate Normal (Normal)
[2020-07-05] MEDS: Tiotropium 10 INH DOSE IH SCH (07:30)
[2020-07-05] MEDS: Budesonide/Formoterol 160/4.5 1 PUFF INH IH SCH ×2 (07:31→19:41)
[2020-07-05] MEDS: Piperacillin/Tazobactam 3.375 GM in 0.9 % Sodium Chloride Mini Bag 100 ML IVPB SCH ×3 (08:06→23:34)
[2020-07-05] MEDS: Pantoprazole 40 MG VIAL IVP SCH (08:07)
[2020-07-05] MEDS: Dexamethasone 4 MG/ML VIAL IVP SCH (08:07)
[2020-07-05] MEDS: Cyanocobalamin (B-12) 1,000 MCG TABLET PO SCH (09:20)
[2020-07-05] MEDS: Aspirin 81 MG TAB.CHEW PO SCH (09:20)
[2020-07-05] MEDS ORDERED: Artificial Tears SOLN 15 ML BOTTLE BOTH EYES PRN (11:38)
[2020-07-05] MEDS: FentaNYL (PF) 1,000 MCG/100 ML IV.SOLN IVC SCH (13:35)
[2020-07-05] MEDS: Artificial Tears SOLN 15 ML BOTTLE BOTH EYES SCH ×4 (13:36→23:35)
[2020-07-05] MEDS ORDERED: 0.9 % Sodium Chloride 1,000 ML ONE (14:45)
[2020-07-05] MEDS: Norepinephrine 4 MG/254 ML IV.SOLN IVC SCH ×4 (16:20→23:34)
[2020-07-05 16:23] LABS: ABG Base Excess -3 mEq/L (-2 to 3); ABG HCO3 25 mEq/L (21-27); ABG Oxygen Saturation 98 % (95-98); ABG PCO2 60 mmHg (35-45); ABG PH 7.23 pH Units (7.32-7.45); ABG PO2 130 mmHg (85-104); ABG TCO2 27 mEq/L (20-26); Blood Gas Modality ASSIST CONTROL; Blood Gas VT 400 cc
[2020-07-05] MEDS ORDERED: *HR* Etomidate 20 MG/10 ML AMPUL IVP ONE (16:39)
[2020-07-05] MEDS: Vasopressin 40 UNIT in D5% in Water 100 ML IVC SCH (17:15)
[2020-07-05] MEDS ORDERED: Vasopressin 40 UNIT in D5% in Water 100 ML IVC SCH (17:36)
[2020-07-05] MEDS: Chlorhexidine Rinse 15 ML MOUTHWASH MM SCH (19:54)
[2020-07-05] MEDS: Phenylephrine 10 MG in 0.9 % Sodium Chloride 250 ML IVC SCH (19:55)
[2020-07-05] MEDS: Cisatracurium 200 MG in 0.9 % Sodium Chloride 180 ML IVC SCH (20:06)
[2020-07-05] MEDS: Heparin 25,000UNIT/250ML 1/2NS 25,000 UNIT/250 ML IV.SOLN IVC SCH (20:10)
[2020-07-06] MEDS: Dexmedetomidine HCl 400 MCG/100 ML MLS IVC SCH ×2 (01:13→05:46)
[2020-07-06] MEDS: DilTIAZem 50 MG in 0.9 % Sodium Chloride 40 ML IVC SCH (02:11)
[2020-07-06] MEDS: Norepinephrine 4 MG/254 ML IV.SOLN IVC SCH ×2 (03:20→05:44)
[2020-07-06] MEDS: Artificial Tears SOLN 15 ML BOTTLE BOTH EYES SCH ×2 (04:00→08:32)
[2020-07-06 04:10] LABS: Nucleated Red Blood Cells 0.1 /100 WBC (0); Segmented Neutrophils % 88.7 %
[2020-07-06 04:11] LABS: Basophils % 0.1 %; Hemoglobin 11.8 g/dL (12.9-16.9); Immature Granulocytes % 1.6 % (0-4); Lymphocytes % 2.9 %; Mean Corpuscular HGB Conc 28.8 g/dL (31.6-35.5); Mean Corpuscular Hemoglobin 31.6 pg (28.0-33.3); Mean Platelet Volume 9.9 fL (9.4-12.4); Monocytes # 2.4 K/mcL (0.0-1.3); Monocytes % 6.7 %; Neutrophils # 31.7 K/mcL (1.6-8.9); Platelet Count 510 K/mcL (140-400); Red Blood Count 3.73 M/mcL (4.19-5.50); Red Cell Distribution Width 15.5 % (11.5-14.5)
[2020-07-06 04:13] LABS: Mean Corpuscular Volume 109.9 fL (83.0-100.0)
[2020-07-06 04:15] LABS: White Blood Count 35.7 K/mcL (4.3-11.1)
[2020-07-06] MEDS: FentaNYL (PF) 1,000 MCG/100 ML IV.SOLN IVC SCH (04:17)
[2020-07-06 04:35] LABS: Albumin 2.7 g/dL (3.5-5.7); Albumin/Globulin Ratio 0.9 (1.1-2.2); Bilirubin,Total 0.7 mg/dL (0.3-1.0); Calcium 7.6 mg/dL (8.6-10.3); Globulin 2.9 g/dL (2.4-3.5); Magnesium 2.8 mg/dL (1.6-2.6); Phosphorous 10.1 mg/dL (2.7-4.5); Total Protein 5.6 g/dL (6.4-8.9)
[2020-07-06 04:45] LABS: Platelet Estimate Increased (Normal)
[2020-07-06] MEDS ORDERED: Insulin Human Regular 10 UNIT in 0.9 % Sodium Chloride 10 ML IV ONE (04:47)
[2020-07-06] MEDS ORDERED: *HR* Dextrose 50 % in Water (Vial) 50 ML VIAL IVP ONE (04:49)
[2020-07-06] MEDS ORDERED: Calcium Gluconate 1gm/50mL 1 GM/50 ML BAG IVPB ONE (04:50)
[2020-07-06 05:04] LABS: ABG Base Excess -8 mEq/L (-2 to 3); ABG HCO3 24 mEq/L (21-27); ABG Oxygen Saturation 89 % (95-98); ABG PCO2 92 mmHg (35-45); ABG PH 7.03 pH Units (7.32-7.45); ABG PO2 83 mmHg (85-104); ABG TCO2 27 mEq/L (20-26); Blood Gas Modality ASSIST CONTROL; Blood Gas VT 400 cc
[2020-07-06] MEDS: Cisatracurium 200 MG in 0.9 % Sodium Chloride 180 ML IVC SCH (05:44)
[2020-07-06] MEDS: Phenylephrine 10 MG in 0.9 % Sodium Chloride 250 ML IVC SCH ×2 (05:45→08:31)
[2020-07-06] MEDS ORDERED: Albumin Human 5% 12.5 GM/250 ML IV.SOLN IVPB ONE (06:21)
[2020-07-06] MEDS ORDERED: Albumin 25% 25gram/100mL 25 GM/100 ML IV.SOLN IVC SCH (06:30)
[2020-07-06] MEDS: Aspirin 81 MG TAB.CHEW PO SCH (07:19)
[2020-07-06] MEDS: Cyanocobalamin (B-12) 1,000 MCG TABLET PO SCH (07:19)
[2020-07-06] MEDS: Vasopressin 40 UNIT in D5% in Water 100 ML IVC SCH (08:31)
[2020-07-06] MEDS ORDERED: Phenylephrine 50 MG in 0.9 % Sodium Chloride 250 ML IVC SCH (09:15)
[2020-07-06 09:57] LABS: Potassium 7.1 mEq/L (3.5-5.1)
[2020-07-06] MEDS: Dexamethasone 4 MG/ML VIAL IVP SCH (09:58)
[2020-07-06] MEDS: Piperacillin/Tazobactam 3.375 GM in 0.9 % Sodium Chloride Mini Bag 100 ML IVPB SCH (09:58)
[2020-07-06] MEDS: Pantoprazole 40 MG VIAL IVP SCH (09:58)
[2020-07-06] MEDS: Chlorhexidine Rinse 15 ML MOUTHWASH MM SCH (09:58)
[2020-07-06 10:04] VITALS: BP 129/60
[2020-07-06] MEDS: Tiotropium 10 INH DOSE IH SCH (10:59)
[2020-07-06] MEDS: Budesonide/Formoterol 160/4.5 1 PUFF INH IH SCH (10:59)
[2020-07-06] MEDS ORDERED: *HR* LORazepam 2 MG/ML VIAL ONE (11:38)
[2020-07-06] MEDS: *HR* LORazepam 2 MG/ML VIAL IVP PRN ×2 (11:45→13:25)
[2020-07-06] MEDS ORDERED: Morphine Sulfate 2 MG/ML SYRINGE IVP PRN (15:16)
[2020-07-06] MEDS ORDERED: Piperacillin/Tazobactam 3.375 GM in 0.9 % Sodium Chloride Mini Bag 100 ML IVPB SCH (18:00)
== END 2020-07-06 16:40 | disposition expired | DRG 208 ==
LOC: 3NENU 18:27 → EMEROOARM 18:27 → 3NENU 06-19 00:04 → SUATTDRO 06-20 15:52 → 2NENU 06-24 11:00 → ICNU 07-01 10:12
PROVIDERS: ADMIT Internal Medicine; ATTEND Internal Medicine